=== PATIENT | female | born 1960 | race African-American/Black ===

== ENCOUNTER 2016-10-05 01:09 | Inpatient (IN) | payer OTHER ==
[~2016-10-05] VITALS: Ht 165.1 cm; Wt 108.4 kg
[~2016-10-05 01:09] MED LIST: ACTOS45 M1 PO; GABAPENTIN300 M2 PO; GLIPIZIDE10 M2 PO; LOSARTAN PO; TRADJENTA5 M1 PO
[2016-10-05] MEDS ORDERED: PRILOSEC OTC20 M1 PO (13:59)
[2016-10-05] MEDS ORDERED: COLACE100 M1 PO (13:59)
[2016-10-05] MEDS ORDERED: MIRALAX17 G1 PO (13:59)
--- NOTE | 2016-10-05 14:04 | Patient Discharge Instructions ---
Discharge Instructions General Discharge Information You were seen/treated for: RIGHT KNEE PAIN You had these procedures: RIGHT TOTAL KNEE REPLACEMENT Watch for these problems: INCREASING PAIN, REDNESS, WARMTH, SWELLING. DRAINAGE OF ANY TYPE FROM INCISION. INABILITY TO BEAR WEIGHT ON RIGHT LEG. FEVER >101.5 DEGREES. Do not soak the wound: Yes No bath, but you may shower: Yes Other wound care: KEEP WOUND CLEAN AND DRY Special Instructions: BOWEL REGIMEN: PLEASE TAKE COLACE AND MIRALAX ORDERD, IT IS IMPORTANT TO PREVENT CONSTIPATION ESPECIALLY WHEN TAKING PAIN MEDICATION PLEASE TAKE YOUR ASPIRIN TWICE DAILY FOR 3 WEEKS. THIS IS IMPORTANT BECAUSE IT PROTECTS YOU FROM A BLOOD CLOT. NO OITNMENTS OF ANY TYPE ARE TO BE PLACED ON INCSION. NO EXCEPTIONS. Stay in knee immobilizer at all times, do not bend the knee Diet Continue normal diet: Yes Recommended Diet: Diabetic Activity Full Activity/No Limits: No Activity Self Limited: Yes Activity Limited to: Weight bear as tolerated Additional ACTIVITY Info: Knee immobilizer at all times, no bending of the knee Acute Coronary Syndrome Inclusion Criteria At DC or during hospital stay patient has or had the following: ACS DIAGNOSIS No Discharge Core Measures Meds if any: Prescribed or Continued at Discharge Meds if any: NOT Prescribed or Continued at Discharge Congestive Heart Failure Inclusion Criteria At DC or during hospital stay patient has or had the following: CHF DIAGNOSIS No Discharge Core Measures Meds if any: Prescribed or Continued at Discharge Meds if any: NOT Prescribed or Continued at Discharge Cerebrovascular accident Inclusion Criteria At DC or during hospital stay patient has or had the following: CVA/TIA Diagnosis No Discharge Core Measures Meds if any: Prescribed or Continued at Discharge Meds if any: NOT Prescribed or Continued at Discharge Venous thromboembolism Inclusion Criteria VTE Diagnosis No VTE Type NONE VTE Confirmed by (Test) NONE Discharge Core Measures - Per Current guidelines, there needs to be overlap - treatment for the first 5 days of Warfarin therapy. - If discharged on Warfarin prior to 5 days of - overlap therapy, the patient will need to be - assessed for post discharge needs including - *Post discharge parental anticoagulation - *Warfarin and/or parental anticoagulation education - *Follow up date to check INR post discharge At least 5 days overlap therapy as Inpatient No Meds if any: Prescribed or Continued at Discharge Note: Overlap Therapy is Warfarin and Anticoagulant Meds if any: NOT Prescribed or Continued at Discharge
--- NOTE | 2016-10-05 14:06 | Admission Core Measures ---
Admission Meds I reviewed the following Meds: Current Medications Sig/Robert Start time Last Medication Dose Stop Time Status Admin Acetaminophen 975 MG ONCE 10/05 0000 NR (Tylenol) 10/05 2358 Gabapentin 300 MG TID 10/05 1600 UNVr (Neurontin) Glipizide 10 MG DAILY AC 10/06 0700 UNVr (Glucotrol 10 MG Tab) Losartan Potassium 50 MG DAILY 10/06 1000 AC (Cozaar) Oxycodone HCl 10 MG ONCE 10/05 0000 NR (Roxicodone) 10/05 2358 Pioglitazone HCl 45 MG DAILY 10/06 1000 AC (Actos) Ropivacaine 500 ML ONCE ONE 10/05 1145 AC (NAROPIN) 10/07 0524 ON-Q Ball 1 BAG Acute Coronary Syndrome Inclusion Criteria ACS Diagnosis No Inpatient Core Measures LDL Reminder: If No, please order W/I first 24hr of stay Congestive Heart Failure Inclusion Criteria CHF Diagnosis No Cerebrovascular accident Inclusion Criteria CVA/TIA Diagnosis No Inpatient Core Measures Bedside Swallow Eval Reminder: If BSE failed, place ST order Antithrombotic Reminder: Order Antithrombotic Medication by end of day 2 Antithrombotic Reminder: Document Reason Antithrombotic Not ordered by end of day 2 AFIB/Flutter Reminder: If Present, add to problem list AFIB/Flutter Reminder: Order Anticoag Medication for pts with AFIB/Flutter Atherosclerosis Reminder: If Present, add to problem list LDL Reminder: If No, please order W/I first 24hr of stay PT Order Reminder: If No, please order Venous thromboembolism Inpatient Core Measures VTE Risk Factors: Age > 40, Surgery No [facility] VTE prophylaxis d/t No contraindications No VTE Pharm Prophylaxis d/t No contraindications Inclusion Criteria - Per Current guidelines, there needs to be overlap - treatment for the first 5 days of Warfarin therapy. - Parenteral Anticoagulation (IV or SC) needs to be - given along with Warfarin therapy. VTE Diagnosis No VTE Type NONE VTE Confirmed by (Test) NONE Problem List As ranked by this Provider includes Assessment & Plan 1. Unilateral primary osteoarthritis, right knee HOME MEDS Home Med List Gabapentin 300 MG CAPSULE 1 CAP PO TID NEUROPATHY (Reported) Glipizide 10 MG TABLET 1 TAB PO DAILY DM II (Reported) Linagliptin (Tradjenta) 5 MG TABLET 1 TAB PO DAILY DM II (Reported) [LOSARTAN] 50 MG 1 TAB PO DAILY HTN (Reported) Pioglitazone HCl (Actos) 45 MG TABLET 1 TAB PO DAILY DM II (Reported)
--- NOTE | 2016-10-05 14:09 | Surgical Discharge Summary ---
Visit Information Visit Dates Admission Date: 10/05/16 Discharge Date: 10/09/16 History of Present Illness Chief Complaint: RIGHT KNEE PAIN Medical History Neurological: neuropathy Cardiovascular: hypertension Musculoskeletal: degen joint disease, osteoarthritis Endocrine: diabetes Surgical History Pertinent Surgical History: non-contributory Review of Systems: SEE H&P Hospital Course Course Attending Physician: MARCY SALINAS MD Primary Care Physician: JF AGARWAL,[facility] Course: RON WAS ADMITTED TO THE HOSPITAL ON 10/05/2016 FOR AN ELECTIVE RIGHT TOTAL KNEE REPLACEMENT. SHE TOLERATED THE PROCEDURE WELL. SHE WAS TRANSFERRED TO A GENERAL SURGICAL FLOOR. HER DIET WAS ADVANCED AND TOLERATD. HER PAIN WAS CONTROLLED WELL WITH ORAL PAIN MEDICATIONS WELL as On-Q nerve block Patient had elevated blood sugar over 400 and medicine consult was called followed by a endocrine consult with Dr. forrest. Recommendations were made and blood sugars have improved. On postop day 1, 10/06/2016, unfortunately patient had a fall while attempting to wash herself at the bedside. She suffered a anterior and lateral right knee dislocation and complete wound dehiscence and tearing of the skin and additional wound which was a continuation of the surgical incision distally and medially into the medial calf region. She did not suffer any fracture or other traumatic injury. The leg was stabilized in immobilizer and Betadine and saline dressing was placed into the wound and compression wrap was placed on the leg to control the bleeding. She was later taken back to the operating room by Dr. Salinas and underwent a polyethylene exchange, extensive irrigation, medial collateral ligament repair as it was extensively torn, hardware removal of ozzy of the proximal tibia and then re-implantation of ozzy and the proximal tibia tightening down her medial compartment for additional valgus support as her knee was grossly unstable. She also underwent a repair of the distal wound that was torn open after her fall. She remained neurovascularly intact postoperatively and there was no evidence of popliteal artery or nerve damage. She tolerated the procedure well without complications, Hemovac drain was placed and she was continued on antibiotics until her discharge. Knee immobilizer was placed in the operating room and she will continue this knee immobilizer until 6 weeks postoperatively for her first follow-up appointment. She will continue on eliquis for DVT prophylaxis. She is weightbearing as tolerated on the right lower leg and has been working with physical therapy, knee immobilizer on at all times. Complications: See above Allergies: Coded Allergies: Penicillins (CHILDHOOD 10/01/16) Disposition Summary Disposition Principal Diagnosis: RIGHT KNEE UNILATERAL PRIMARY OSTEOARTHRITIS Additional Diagnosis: Mechanical fall with traumatic injury to the right lower extremity, right knee causing wound dehiscence anterior and lateral dislocation of the knee joint and open wound of the distal incision extending into the proximal medial lower leg requiring surgical washout and polyethylene liner exchange and wound repair and reconstruction of medial collateral ligament on 10/06/2016 Discharge Disposition: SNF Discharge Instructions General Discharge Information Code Status: Full Code Patient's Diet: ADA, ADVANCE TOLERATED Patient's Activity: WBAT Knee immobilizer on at all times No range of motion until seen by orthopedist postop Aspirin for DVT prophylaxis for 3 weeks Watch for signs of infection Follow-Up Instructions/Appts: 6 WEEKS FROM DATE OF SURGERY WITH DR. SALINAS Medications at Discharge Discharge Medications: Continue taking these medications: Glipizide (Glipizide) 10 MG TABLET 1 Tablet ORAL DAILY Comments: NOT GIVEN Gabapentin (Gabapentin) 300 MG CAPSULE 1 Capsule ORAL THREE TIMES DAILY Comments: NOT GIVEN Pioglitazone HCl (Actos) 45 MG TABLET 1 Tablet ORAL DAILY Comments: NOT GIVEN Linagliptin (Tradjenta) 5 MG TABLET 1 Tablet ORAL DAILY Comments: NOT GIVEN Losartan Potassium (Cozaar) 50 MG TABLET 1 Tablet ORAL DAILY Start taking the following new medications: Acetaminophen (Tylenol) 325 MG TABLET 650 Milligram ORAL EVERY 4 HOURS NEEDED as needed for PAIN 1-3 &/OR FEVER >101.5 Days = 10 No Refills Comments: Last Taken:10/08/16 Time:7AM Apixaban (Eliquis) 2.5 MG TABLET 2.5 Milligram ORAL TWICE DAILY Days = 28 No Refills Comments: Last Taken:10/09/16 Time:11AM Calcium Carbonate (Calcium Carbonate) 200 MG CALCIUM (500 MG) TAB.CHEW 1,000 Milligram ORAL EVERY 8 HOURS NEEDED as needed for HEARTBURN Days = 14 No Refills Comments: NOT GIVEN Gabapentin (Gabapentin) 300 MG CAPSULE 600 Milligram ORAL THREE TIMES DAILY Days = 28 No Refills Comments: Last Taken:10/09/16 Time:9AM Guaifenesin (Guaifenesin) 100 MG/5 ML LIQUID 10 Milliliters ORAL EVERY 4 HOURS NEEDED as needed for COUGH Days = 14 No Refills Comments: Last Taken:10/08/16 Time:10PM Insulin Detemir (Levemir) 100 UNIT/ML VIAL 18 Units Inject into fatty tissue TWICE DAILY Days = 30 No Refills Comments: Last Taken:10/09/16 Time:10AM Methocarbamol (Robaxin) 500 MG TABLET 1,000 Milligram ORAL THREE TIMES DAILY as needed for SPASMS Days = 14 No Refills Comments: Last Taken:10/08/16 Time:10PM Morphine Sulfate (Morphine Sulfate ER) 30 MG TABLET.ER 30 Milligram ORAL TWICE DAILY as needed for long acting pain control Days = 7 No Refills Comments: Last Taken:10/09/16 Time:10AM Nicotine (Nicotine Patch) 21 MG/24 HOUR PATCH.TD24 21 Milligram On the skin 2000 as needed for smoking cessation Days = 10 No Refills Comments: Last Taken:10/08/16 Time:10PM Oxycodone HCl (Oxycodone HCl) 10 MG TABLET 10 Milligram ORAL EVERY 4 HOURS NEEDED as needed for PAIN SCALE 4-6 ( MODERATE) Days = 14 No Refills Comments: NOT GIVEN Oxycodone HCl (Oxycodone HCl) 5 MG TABLET 15 Milligram ORAL EVERY 4 HOURS NEEDED as needed for PAIN SCALE 7-10 ( SEVERE) Days = 14 No Refills Comments: Last Taken:10/09/16 Time: 4:35 PM Zolpidem Tartrate (Zolpidem Tartrate) 5 MG TABLET 5 Milligram ORAL AT BEDTIME as needed for INSOMNIA Days = 10 No Refills Comments: Last Taken:10/09/16 Time:12AM Insulin Aspart (Novolog) 100 UNIT/ML VIAL 0 Inject into fatty tissue 4 TIMES A DAY Days = 30 No Refills Instructions: BEFORE MEALS X 3TIMES BEDTIME FSG < 200 NO COVERAGE NO COVERAGE 200-250 4 UNITS 2 UNITS 251-300 6 UNITS 3 UNITS 301-350 8 UNITS 4 UNITS 351-400 10 UNITS 5 UNITS >400 12 UNITS 6 UNITS Comments: Last Taken:10/09/16 Time: 12 NOON Docusate Sodium (Colace) 100 MG CAPSULE 1 Capsule ORAL TWICE DAILY Qty = 14 No Refills Instructions: DISCONTINUE USE IF YOU DEVELOP LOOSE STOOL OR DIARRHEA Polyethylene Glycol 3350 (Miralax) 17 GRAM POWD.PACK 1 Packet ORAL DAILY Qty = 7 No Refills Instructions: dissolve in water, DISCONTINUE USE IF YOU DEVELOP LOOSE STOOL OR DIARRHEA Omeprazole Magnesium (Prilosec Otc) 20 MG TABLET. 1 Tablet ORAL DAILY Qty = 30 No Refills Copies To: JF AGARWAL,DIONICIO
--- NOTE | 2016-10-05 16:09 | Operative Report ---
Operative/Inv Procedure Report Surgery Date: 10/05/16 Name of Procedure: 1. Right total knee replacement 2. Left knee cortisone injection Pre-Operative Diagnosis: Bilateral knee DJD Post-Operative Diagnosis: Same Estimated Blood Loss: 50ml to 100ml Surgeon/Travel Registered Nurse Icu: RITA AGARWAL,MARCY Bhakta Anesthesia: block Operative/Procedure Note Note: Description of Procedure: The patient was taken to the operating room and positively identified. After induction of spinal anesthesia and administration of appropriate pre-operative antibiotics, the patient was positioned supine on the operating room table and all bony prominences were well padded. The left knee was prepped steriley and injected with a mixture of 2cc of Depo- Medrol and 8cc of 0.5% Marcaine. A bandaid was placed on the injection site. A well-padded pneumatic tourniquet was placed on the right upper thigh. After performing a surgical timeout, the right lower extremity was prepped and draped in the usual sterile fashion. After exsanguination with Esmarch the tourniquet was inflated to 250mm of mercury. A standard medial parapatellar approach was made to the knee. This was carried down through skin and subcutaneous tissue to the level of the fascia. Meticulous hemostasis was maintained with Bovie electrocautery. The extensor mechanism and patellar retinaculum were opened sharply and the patella was everted. The infrapatellar fat was resected in order to improve exposure. Osteophytes were trimmed from the patella and femoral condyles and the patella was re-everted and tucked laterally. A medial release was performed and the cruciate ligaments were resected. The tibia was then subluxed anteriorly. Utilizing the appropriate extra-medullary guide, the proximal tibia was trimmed perpendicular to the long axis of the tibial shaft. Attention was then turned to the femur. After opening the medullary canal, the distal femoral cut was made in 6 degrees of valgus utilizing the appropriate intra-medullary guide. The extension gap was checked and found to be appropriate. The femur was then sized and the remainder of the femoral cuts were made with a size 3 4-in-1 femoral cutting guide. The flexion gap was checked and found to be symmetric and appropriate. The knee was then trialed with a size 3 femoral component, a size 3 tibial component and a size 11 mm polyethylene insert. The patella was not resurfaced due to its excellent preop condition. This yielded excellent range of motion, stability and patellar tracking. All trial components were removed and the knee was copiously irrigated with sterile saline. All components were cemented into place with Miri Simplex cement. All the components were of the [place] Triathlon knee system of the above stated sizes. After cementation, it was noted that the MCL was quite a bit more lax than it was during trialling. The MCL was then tensioned with the knee is 20 degrees of flexion and some varus and secured with a pair of Sanchez ozzy. It was noted to be stable after this. The knee was again irrigated after cementation. The extensor mechanism and patellar retinaculum were repaired using interrupted #1 vicryl suture. The skin was re-approximated with 2-0 vicryl and closed with ozzy. A sterile dressing was applied, the tourniquet was deflated, the patient was awakened and taken to the recovery room in satisfactory condition.
--- NOTE | 2016-10-05 17:02 | PN- Orthopedic ---
Subjective Subjective: Postop check: Postoperatively patient is doing well, she just received a nerve block to the right lower extremity in the recovery room and her pain has resolved. She has no other complaints. Objective Vital Signs and I&Os Vital signs stable Physical Exam: Well-developed well-nourished no apparent distress. HEENT: Atraumatic, extraocular motion intact Neck: Supple, no lymphadenopathy Respiratory: No respiratory distress Extremities: No edema RIGHT lower extremity dressing in place, on-Q in place Compression wrap in place. Neurovascularly intact distally Bilateral calves are supple, nontender. Neuro: Alert and oriented x3 Psych: Mood affect normal, normal memory normal judgment. Skin: Warm and dry, no rash on exposed skin Assessment/Plan Assessment/Plan Postop day 0 status post right total knee arthroplasty. -Orthopedically stable -Pain medication as needed -Continue on-Q -Dressing change in 2 days -Prilosec for GI prophylaxis and stool softeners -Aspirin for DVT prophylaxis -Follow labs tomorrow -Alps, compression wrap RLE -Ancef for infectious prophylaxis 2 more doses -Out of bed with physical therapy weightbearing as tolerated -Plan for prison facility in 2-3 days -Monitor blood sugar, tight glycemic control required postoperatively, insulin sliding scale ordered -Nicotine patch, patient act per day smoker Core Measures/Miscellaneous Venous Thromboembolism VTE Risk Factors: Age > 40, Smoking, Surgery VTE Contraindications: No Contraindications VTE Diagnosis: No VTE Type: NONE VTE Confirmed by (Test): NONE Beta Cody Is Beta Cody a Home Med? No Antibiotics Is Patient on Antibiotics? Yes If Yes: prophylaxis
[2016-10-05 18:50] VITALS: BP 144/60
--- NOTE | 2016-10-05 19:56 | Cons- Medical ---
CARMEN WIGGINS 10/05/161954: General Information and HPI Consulting Request Date of Consult: 10/05/16 Requested By: MARCY SALINAS MD Reason for Consult: Hyperglycemia Source of Information: patient, EMS Exam Limitations: no limitations History of Present Illness: Reason for consult: Management of hyperglycemia Past medical history: Hypertension, diastolic CHF, NIDDM, osteoarthritis, DJD The patient is status post right total knee arthroplasty this morning. She was reported to have blood glucose level elevated to 482 around 6 PM. She was given 12 units of regular insulin, blood glucose level was checked after dinner around 7 PM which was 499. Medical team was consulted for management of blood glucose levels. Per patient, she was diagnosed with diabetes 8 years ago. She usually checks her blood glucose levels once a day(120s). Hemoglobin A1c 7 in August 2016. No history of DKA or hyperosmolar coma in past, no admission for hyperglycemia. 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 She was maintained on glipizide 10 mg daily , and Pioglitazone 45 mg daily during her hospital stay. Of note she also received dextrose-containing fluids today. The patient denies any headache, nausea, vomiting, dizziness, lightheadedness, abdominal pain, urinary symptoms. Allergies/Medications Allergies: Coded Allergies: Penicillins (CHILDHOOD 10/01/16) Home Med List: Gabapentin 300 MG CAPSULE 1 CAP PO TID NEUROPATHY (Reported) Glipizide 10 MG TABLET 1 TAB PO DAILY DM II (Reported) Linagliptin (Tradjenta) 5 MG TABLET 1 TAB PO DAILY DM II (Reported) [LOSARTAN] 50 MG 1 TAB PO DAILY HTN (Reported) Pioglitazone HCl (Actos) 45 MG TABLET 1 TAB PO DAILY DM II (Reported) Review of Systems Review of Systems Constitutional: Denies: chills, diaphoresis, fever, malaise, weakness, unexplained weight loss. EENTM: Reports: no symptoms. Cardiovascular: Reports: no symptoms. Respiratory: Reports: no symptoms. GI: Reports: no symptoms. Genitourinary: Reports: no symptoms. Musculoskeletal: Reports: no symptoms. Skin: Reports: no symptoms. Neurological/Psychological: Reports: no symptoms. Hematologic/Endocrine: Reports: no symptoms. Immunologic/Allergic: Reports: no symptoms. All Other Systems: Reviewed and Negative Past History Medical History Blood Transfusion Hx: No Neurological: NONE EENT: NONE Cardiovascular: diastolic CHF, hypertension Respiratory: NONE Gastrointestinal: NONE Hepatic: NONE Renal: NONE Musculoskeletal: degen joint disease, osteoarthritis Psychiatric: NONE Endocrine: diabetes Blood Disorders: NONE Cancer(s): NONE MARKETING DIRECTOR ASSISTED LIVING/Reproductive: NONE Surgical History Surgical History: non-contributory Psychosocial History Where Do You Live? Home Smoking Status: Current Everyday Smoker Exam & Diagnostic Data Last 24 Hrs of Vital Signs/I&O Vital Signs Date Time Temp Pulse Resp B/P Pulse O2 O2 Flow FiO2 Ox Delivery Rate 10/05 2311 150/80 10/05 2250 98.1 99 20 96 Room Air 10/05 2002 97.9 88 20 130/64 94 Room Air 10/05 1850 98.2 92 14 144/60 95 Room Air Intake & Output 10/06 0800 10/06 0000 10/05 1600 Intake Total 2400 Output Total 601 Balance 1799 Intake, IV 400 Intake, Oral 2000 Number 3 Bowel Movements Output, Stool 1 Output, Urine 600 Patient 240 lb Weight Physical Exam General Appearance: well developed/nourished, no apparent distress, alert, awake , comfortable Head: atraumatic, normal appearance Eyes: Bilateral: PERRL, EOMI. Ears, Nose, Throat: normal pharynx, normal ENT inspection Neck: normal inspection, supple, full range of motion, JVD Respiratory: normal breath sounds, chest non-tender, no respiratory distress Cardiovascular: regular rate/rhythm, No murmur Back: normal inspection Extremities: normal inspection, no edema Neurologic/Psych: no motor/sensory deficits, awake, alert, oriented x 3 Cranial Nerves: normal hearing, normal speech, PERRL, CN 3-12 intact, NL Reflexes Skin: intact, normal color Last 24 Hrs of Labs/Rich: Laboratory Tests 10/05/16 2000: Anion Gap 17 H, Estimated GFR 52 L, BUN/Creatinine Ratio 20.9 Assessment/Plan Assessment/Plan 56-year-old lady with NIDDM status post right total knee arthroplasty this morning, now hyperglycemic to 400s. * The patient has received 12 units of regular insulin. * BEP pending * 6 Unit aspart insulin stat * Accuchecks q2 * Endo consult tomorrow morning Update 1 AM, 10/06/2016: Blood glucose level 452, will give another 6 units of aspart insulin. Will monitor closely. Problem List: 1. Hyperglycemia Copies To: RITA AGARWAL,MARCY Consult Acknowledgment - Thank you for your consult request. ANNETTE RODRIGUEZ 10/06/16 0652: Assessment/Plan Consult Acknowledgment - Thank you for your consult request. Attending MD Review Statement Attending Statement Attending MD Statement: examined this patient, discuss w/resident/PA/DIGITAL MARKETER, agreed w/resident/PA/DIGITAL MARKETER, reviewed EMR data (avail), reviewed images, amended to note Attending Assessment/Plan: Patient was admitted for elective right knee replacement surgery. Medical consult was called for persistent hyperglycemia. Patient is symptomatic. She takes 3 different oral hypoglycemics at home, and was not receiving any insulin prior to surgery. Examination unremarkable, labs unremarkable. -Patient received 12 units of regular insulin in the evening, still persistently hyperglycemic. -6 more units of aspart insulin was given, Accu-Cheks every 2 hours -Patient is insulin gopi, have to be cautious with insulin use -Continue sliding scale according to next Accu-Cheks -Endocrine consult in a.m. - Patient's hemoglobin A1c was 7, doesn't recently outpatient. Postoperative stress might be adding up to hyperglycemia.
[2016-10-05 20:03] VITALS: BP 130/64
[2016-10-05 23:11] VITALS: BP 150/80
[2016-10-06 00:58] VITALS: BP 162/82
[2016-10-06 05:00] VITALS: BP 170/80
--- NOTE | 2016-10-06 07:16 | PN- Medicine Consult ---
See Addendum SANA POLLARD 10/06/16 0716: Assessment/Plan Assessment/Plan Assessment: 56-year-old lady with a PMH of HTN, DJD, OA, diabetes on triple therapy ( glipizide jrajenta, pioglitazone), gated with diabetic neuropathy which is managed with gabapentin was admitted and is now status post right total knee replacement. Currently being consulted for assistance with management of diabetes. VS on admission: BP 144/60, HR 92, RR 14, SPO2 95% on RA, T 98.2 Pertinent labs: CBC: Pending. Sodium 136, potassium 4.1, chloride 96, bicarbonate 28, BUN/CR 26/0.6 Problem list: 1. Right total knee replacement (10/05/2016) 2. Left knee cortisone injection 3. Diabetes with hyperglycemia 4. Hypertension Plan: Recommendations: 1. Right total knee replacement (10/05/2016) * Pain management and recommendations per surgery 2. Left knee cortisone injection * Pain management and recommendations per surgery 3. Diabetes with hyperglycemia * Patient is on triple oral anti-hyperglycemics at home * Linagliptin 5 mg, pioglitazone 45 mg, glipizide 10 mg * Accu-Cheks between 327 and 499 * She received her morning dose of pioglitazone 45 mg, glipizide 10 mg. In addition, 10 units of NovoLog administered at 8 AM * Recommendations provided by icing and glaze maker Dr. Jones * Discontinue pioglitazone and glipizide. Continue with Trajenta (linagliptin) 5mg daily * Based on pts average weight 100 kg, total insulin requirements per 24 hours will be average 50 units, half of which would be basal the rest per SS. In patient insulin naive, slightly lower insulin dosage can be applied. * SS per Dr Jones * Levemir 12 units BID 4. Hypertension * SBP range 130 to 170 * Elevation likely secondary to pain * Continue losartan 50 mg daily and pain management 5. Diarrhea * Less likely to be infectious at this point * If persistent send stool C. difficile Problem List: 1. Total knee replacement status 2. Diabetes 3. Hyperglycemia 4. HTN (hypertension) 5. Diarrhea Subjective Subjective: Interval history: This morning the patient complains of pain in her right knee and some abdominal discomfort. She reports that she has been diagnosed with diabetes approximately 10 years ago , prior HgA1c around 12, metformin discontinued in the setting of diarrhea. She has been on triple oral antihyperglycemic agents for a few months and states that her latest HgA1c is around 7. She is followed up by an icing and glaze maker at [facility]. She denies any fevers or chills at this time Review of Systems Constitutional: Reports: see HPI. EENTM: Reports: no symptoms. Cardiovascular: Reports: see HPI. Respiratory: Reports: no symptoms. Gastrointestinal: Reports: see HPI. Genitourinary: Reports: see HPI. Musculoskeletal: Reports: see HPI. Objective Last 24 Hrs of Vital Signs/I&O Vital Signs Date Time Temp Pulse Resp B/P Pulse O2 O2 Flow FiO2 Ox Delivery Rate 10/06 0812 85 164/80 10/06 0500 98.1 88 18 170/80 93 Room Air 10/06 0058 98.0 88 18 162/82 93 Room Air 10/05 2311 150/80 10/05 2250 98.1 99 20 96 Room Air 10/05 2003 97.9 88 20 130/64 94 Room Air 10/05 1850 98.2 92 14 144/60 95 Room Air Intake & Output 10/06 1600 10/06 0800 10/06 0000 Intake Total 1280 2400 Output Total 1250 601 Balance 30 1799 Intake, IV 800 400 Intake, Oral 480 2000 Number 3 Bowel Movements Output, Stool 1 Output, Urine 1250 600 Patient 240 lb Weight Physical Exam General Appearance: alert, comfortable Head: normal appearance Ears, Nose, Throat: hearing grossly normal Cardiovascular: regular rate/rhythm, distant heart sounds Respiratory: normal breath sounds, decreased breath sounds in the basilar region Abdomen: normal bowel sounds, soft, non-tender, Hyperactive bowel sounds Extremities: plus pitting edema. Right knee is covered in an Emery bandage at this time Current Medications: Current Medications Sig/Robert Start time Last Medication Dose Route Stop Time Status Admin Acetaminophen 650 MG Q4P PRN 10/05 1745 AC PO Acetaminophen 0 .STK-MED ONE 10/05 1057 DC PO Acetaminophen 975 MG ONCE 10/05 0000 DC PO 10/05 2359 Aspirin 325 MG BID 10/05 2200 AC 10/06 PO 0811 Cefazolin Sodium 2 GM Q8H 10/05 1700 DC 10/06 N/A 1 UNIT IV 10/06 0129 0000 Dextrose/Sodium 1,000 ML .[id number] 10/05 1745 DC 10/05 Chloride IV 1755 Docusate Sodium 100 MG BID 10/05 2200 DC 10/05 PO 2047 Fentanyl Citrate 100 MCG .STK-MED ONE 10/05 0920 DC IM 10/05 0921 Gabapentin 600 MG TID 10/06 1000 AC 10/06 PO 0610 Gabapentin 300 MG TID 10/05 2200 DC 10/05 PO 2047 Gabapentin 300 MG TID 10/05 1600 DC PO Glipizide 10 MG 0800,1700 10/06 0800 DC PO Glipizide 10 MG 0800,1700 10/06 0800 DC 10/06 PO 0811 Hydromorphone HCl 2 MG Q4P PRN 10/05 1745 AC PO Hydromorphone HCl 4 MG Q4P PRN 10/05 1745 AC 10/06 PO 0608 Hydromorphone HCl 2 MG .STK-MED ONE 10/05 1538 DC IM 10/05 1539 Insulin Aspart 0 TIDAC/HS 10/06 1200 AC SC Insulin Aspart 6 UNITS ONCE ONE 10/06 0845 DC 10/06 SC 10/06 0846 0853 Insulin Aspart 6 UNITS ONCE ONE 10/06 0100 DC 10/06 SC 10/06 0101 0109 Insulin Aspart 6 UNITS ONCE ONE 10/05 2100 DC 10/05 MA 10/05 2101 2125 Insulin Detemir 12 UNITS BID 10/06 1000 AC 10/06 SC 0852 Insulin Human Regular 0 TIDAC/HS 10/05 1700 DC 10/06 SC 0812 Ketorolac 15 MG Q8P PRN 10/05 1745 AC Tromethamine IV 10/08 1742 Losartan Potassium 50 MG DAILY 10/06 1000 DC PO Losartan Potassium 50 MG DAILY 10/06 1000 AC 10/06 PO 0812 Midazolam HCl 4 MG .STK-MED ONE 10/05 0920 DC IM 10/05 0921 Morphine Sulfate 2 MG Q2P PRN 10/05 1745 AC 10/06 IV 0859 Nicotine 21 MG 2000 10/06 2000 AC TOP Nicotine 21 MG DAILY 10/05 1700 DC 10/05 TOP 2048 Omeprazole 40 MG DAILY AC 10/06 0700 AC 10/06 PO 0607 Ondansetron HCl 4 MG Q6P PRN 10/05 1745 AC IV Oxycodone HCl 0 .STK-MED ONE 10/05 1057 DC PO Oxycodone HCl 10 MG ONCE 10/05 0000 DC PO 10/05 2359 Pioglitazone HCl 45 MG DAILY 10/06 1000 DC PO Pioglitazone HCl 45 MG DAILY 10/06 1000 DC 10/06 PO 0811 Polyethylene Glycol 17 GM DAILY 10/06 1000 DC PO Promethazine HCl 12.5 MG Q6P PRN 10/05 1745 AC IV 10/12 1359 Ropivacaine 500 ML ONCE ONE 10/05 1145 AC 10/05 ON-Q Ball 1 BAG INJ 10/07 0524 1756 Sodium Chloride 1,000 ML Q10H 10/05 2045 AC 10/06 IV 0608 Tranexamic Acid 2,000 MG .STK-MED ONE 10/05 0920 DC IV 10/05 0921 Zolpidem Tartrate 5 MG AT BEDTIME 10/06 2200 DC PO Zolpidem Tartrate 5 MG AT BEDTIME PRN 10/05 2315 AC 10/05 PO 2306 Results Last 24 Hrs Lab/Rich Results: Laboratory Tests 10/06/16 0640: Anion Gap 12, Estimated GFR > 60, BUN/Creatinine Ratio 43.3 H, CBC w Diff NO MAN DIFF REQ, RBC 4.40, MCV 93.2, MCH 30.4, RDW 13.5, MPV 11.0 H, Gran % 87.7 H, Lymphocytes % 7.4 L, Monocytes % 4.9, Eosinophils % 0, Basophils % 0 L, Absolute Granulocytes 10.9 H, Absolute Lymphocytes 0.9 L, Absolute Monocytes 0.6, Absolute Eosinophils 0, Absolute Basophils 0, PUBS MCHC 32.6 L 10/05/16 2000: Anion Gap 17 H, Estimated GFR 52 L, BUN/Creatinine Ratio 20.9 Microbiology 10/05 2199 STOOL: Clostridium difficile Toxin A & B - COLB CISCO AGARWAL,STUART 10/06/16 1247: Attending MD Review Statement Attending Sign Off Attending Cosign Statement: I have: examined this patient, reviewed [facility] EMR data, personally reviewd images, discussd w/resident/PA/DATABASE OPERATOR, discussed mgmt plan w/sirisha, discussed mgmt plan w/pt, agreed w/resident/PA/DATABASE OPERATOR, amended to note. Other Findings: Patient seen and examined after the rapid response. Rapid Response was called because she fell. She was sitting in the chair, washing and then slipped and fell. Rapid response was called and patient was put on a bed through Mick lift. The right knee which is postop started to bleed. Blood pressure was checked and her systolic blood pressure was in 80s 2. Patient started to complain of pain in the knee as well as epigastric pain. Surgical PA 4 at the bedside they opened the dressing and the knee was completely open. Alicia came off and knee opened. Surgical PA opened the dressing, but in some Betadine sterile gauzes and the knee in rapid again. Patient started to complain of epigastric pain as well as feeling nauseous. We obtained EKG which does not show any acute changes but she had no previous EKGs to compare. We have ordered a fluid bolus, basic blood work as well as troponins to check. She was getting anxious and nervous. At this point we are moving her to ICU. Surgical PAs I'm going to contact Dr. Mackenzie as she will likely be taken back to OR again as right knee which is postop was completely opened after the fall. She had received her Levemir insulin this morning she also received was are pending this morning. She ate breakfast and then nicole crackers afterwards. Her blood pressure should be checked frequently. should be notified as she might make some changes in her insulin regimen. Cefazolin has been ordered per surgical PAs. DVT prophylaxis. Will refer to orthopedic.
--- NOTE | 2016-10-06 07:45 | PN- Orthopedic ---
Subjective Subjective: 56-year-old female postop day 1 status post right total knee arthroplasty. Her pain is controlled, she denies any nausea or vomiting. Her blood sugar was significantly elevated throughout the night and medicine has been consulted and following, making recommendations. She denies any increased urination or increased thirst. She is voiding normally. She has had loose bowel movements which she states can be normal for her, especially in the morning. She has yet to get out of bed with physical therapy. She denies any pain in the right knee. Objective Vital Signs and I&Os Vital Signs Date Time Temp Pulse Resp B/P Pulse O2 O2 Flow FiO2 Ox Delivery Rate 10/06 0500 98.1 88 18 170/80 93 Room Air 10/06 0058 98.0 88 18 162/82 93 Room Air 10/05 2311 150/80 10/05 2250 98.1 99 20 96 Room Air 10/05 2002 97.9 88 20 130/64 94 Room Air 10/05 1850 98.2 92 14 144/60 95 Room Air Intake & Output 10/06 0810/06 0000 10/05 1600 10/05 0810/05 0000 10/04 1600 Intake Total 1280 2400 Output Total 1250 601 Balance 30 1799 Intake, IV 800 400 Intake, Oral 480 2000 Number 3 Bowel Movements Output, Stool 1 Output, Urine 1250 600 Patient 240 lb Weight Physical Exam: Well-developed well-nourished no apparent distress. HEENT: Atraumatic, extraocular motion intact Neck: Supple, no lymphadenopathy Respiratory: No respiratory distress Extremities: No edema RIGHT lower extremity dressing in place, Range of motion is 0-30 Dressing clean dry and intact Compression wrap in place. ALPS in place Neurovascularly intact distally Bilateral calves are supple, nontender. Neuro: Alert and oriented x3 Psych: Mood affect normal, normal memory normal judgment. Skin: Warm and dry, no rash on exposed skin Results Last 48 Hours of Labs: Laboratory Tests 10/06 10/05 0640 1999 Chemistry Sodium (137 - 145 mmol/L) Pending 133 L Potassium (3.5 - 5.1 mmol/L) Pending 4.6 Chloride (98 - 107 mmol/L) Pending 90 L Carbon Dioxide (22 - 30 mmol/L) Pending 26 Anion Gap (5 - 16) Pending 17 H BUN (7 - 17 mg/dL) Pending 23 H Creatinine (0.5 - 1.0 mg/dL) Pending 1.1 H Estimated GFR (>60 ml/min) 52 L BUN/Creatinine Ratio (7 - 25 %) Pending 20.9 Hematology CBC w Diff Pending WBC Pending RBC Pending Hgb Pending Hct Pending MCV Pending MCH Pending RDW Pending Plt Count Pending MPV Pending PUBS MCHC Pending Assessment/Plan Assessment/Plan Postop day 1 status post right total knee arthroplasty. -Orthopedically stable -Pain medication as needed -Continue on-Q -Dressing change tomorrow -Prilosec for GI prophylaxis , hold stool softeners due to diarrhea, C. difficile pending receipt -Aspirin for DVT prophylaxis -Follow labs this a.m. -Alps, compression wrap RLE -Ancef completed -Out of bed with physical therapy weightbearing as tolerated -Plan for residential facility in 1-2 days -Elevated blood sugar, medicine following, appreciated -Nicotine patch, patient 1 per day smoker Core Measures/Miscellaneous Venous Thromboembolism VTE Risk Factors: Age > 40, Smoking, Surgery VTE Contraindications: No Contraindications VTE Diagnosis: No VTE Type: NONE VTE Confirmed by (Test): NONE Beta Cody Is Beta Cody a Home Med? No Antibiotics Is Patient on Antibiotics? Yes If Yes: prophylaxis
[2016-10-06 08:00] LABS: ABSOLUTE BASOPHIL COUNT 0 /CUMM (0.0-0.2); ABSOLUTE EOSINOPHIL COUNT 0 /CUMM (0.0-0.7); ABSOLUTE GRANULOCYTE CT 10.9 /CUMM (1.4-6.5); ABSOLUTE LYMPH COUNT 0.9 /CUMM (1.2-3.4); ABSOLUTE MONOCYTE COUNT 0.6 /CUMM (0.10-0.60); BASOPHIL % 0 % (0.0-2.0); EOSINOPHIL % 0 % (0-5); MEAN CORPUSCULAR HGB 30.4 PG (27.0-31.0); MEAN CORPUSCULAR HGB CONC 32.6 G/DL (33.0-37.0); MEAN CORPUSCULAR VOLUME 93.2 FL (81.0-99.0); RBC DISTRIBUTION WIDTH 13.5 % (11.5-14.5); WHITE BLOOD CELL COUNT 12.4 /CUMM (4.8-10.8)
[2016-10-06 09:03] LABS: GRANULOCYTE % 87.7 % (42.2-75.2); PLATELET COUNT 112 /CUMM (130-400)
--- NOTE | 2016-10-06 10:30 | Cons- Endocrinology ---
General Information and HPI Consulting Request Date of Consult: 10/06/16 Requested By: medical team Reason for Consult: management of DM type 2 Source of Information: patient, old records Exam Limitations: no limitations History of Present Illness: 56-year-old lady with a PMH of HTN, OA, diabetes type 2 compliacted with diabetic neuropathy was admitted and is now status post right knee surgery. Her FSGs were in the 300s and 400s. I was asked to see her for management of DM. At home, she is on Tradjenta 5 mg daily, Actos 45 mg daily and Glipizide 10 mg twice a day. As per patient, she couldn't take metformin due to GI side effects. Her recent HbA1c was 7.0%. In hospital, she was put on her oral home antidiabetic medications and regular insulin coverage. Repeat FSG was 399 this morning. Allergies/Medications Allergies: Coded Allergies: Penicillins (CHILDHOOD 10/01/16) Home Med List: Gabapentin 300 MG CAPSULE 1 CAP PO TID NEUROPATHY (Reported) Glipizide 10 MG TABLET 1 TAB PO DAILY DM II (Reported) Linagliptin (Tradjenta) 5 MG TABLET 1 TAB PO DAILY DM II (Reported) [LOSARTAN] 50 MG 1 TAB PO DAILY HTN (Reported) Pioglitazone HCl (Actos) 45 MG TABLET 1 TAB PO DAILY DM II (Reported) Review of Systems Review of Systems Constitutional: Reports: see HPI (pain on her leg). Cardiovascular: Denies: chest pain. Respiratory: Denies: short of breath. GI: Reports: diarrhea. Hematologic/Endocrine: Reports: other (numbness on her feet). Past History Medical History Blood Transfusion Hx: No Neurological: NONE EENT: NONE Cardiovascular: diastolic CHF, hypertension Respiratory: NONE Gastrointestinal: NONE Hepatic: NONE Renal: NONE Musculoskeletal: degen joint disease, osteoarthritis Psychiatric: NONE Endocrine: diabetes Blood Disorders: NONE Cancer(s): NONE PHP LAMP DEVELOPER/Reproductive: NONE Surgical History Surgical History: non-contributory Psychosocial History Where Do You Live? Home Smoking Status: Current Everyday Smoker Exam & Diagnostic Data Last 24 Hrs of Vital Signs/I&O Vital Signs Date Time Temp Pulse Resp B/P Pulse O2 O2 Flow FiO2 Ox Delivery Rate 10/06 0812 85 164/80 10/06 0500 98.1 88 18 170/80 93 Room Air 10/06 0058 98.0 88 18 162/82 93 Room Air 10/05 2311 150/80 10/05 2250 98.1 99 20 96 Room Air 10/05 2002 97.9 88 20 130/64 94 Room Air 10/05 1850 98.2 92 14 144/60 95 Room Air Intake & Output 10/06 1600 10/06 0800 10/06 0000 Intake Total 1280 2400 Output Total 1250 601 Balance 30 1799 Intake, IV 800 400 Intake, Oral 480 2000 Number 3 Bowel Movements Output, Stool 1 Output, Urine 1250 600 Patient 240 lb Weight Physical Exam General Appearance: mild distress (due to pain) Neck: normal inspection Respiratory: lungs clear Cardiovascular: regular rate/rhythm Gastrointestinal: soft, non-tender Extremities: normal inspection (s/p surgery on her right knee) Labs/Rich Results: Laboratory Tests 10/06 10/05 0640 1999 Chemistry Sodium (137 - 145 mmol/L) 136 L 133 L Potassium (3.5 - 5.1 mmol/L) 4.1 4.6 Chloride (98 - 107 mmol/L) 96 L 90 L Carbon Dioxide (22 - 30 mmol/L) 28 26 Anion Gap (5 - 16) 12 17 H BUN (7 - 17 mg/dL) 26 H 23 H Creatinine (0.5 - 1.0 mg/dL) 0.6 1.1 H Estimated GFR (>60 ml/min) > 60 52 L BUN/Creatinine Ratio (7 - 25 %) 43.3 H 20.9 Hematology CBC w Diff NO MAN DIFF REQ WBC (4.8 - 10.8 /CUMM) 12.4 H RBC (4.20 - 5.40 /CUMM) 4.40 Hgb (12.0 - 16.0 G/DL) 13.4 Hct (37 - 47 %) 41.0 MCV (81.0 - 99.0 FL) 93.2 MCH (27.0 - 31.0 PG) 30.4 RDW (11.5 - 14.5 %) 13.5 Plt Count (130 - 400 /CUMM) 112 L MPV (7.4 - 10.4 FL) 11.0 H Gran % (42.2 - 75.2 %) 87.7 H Lymphocytes % (20.5 - 51.1 %) 7.4 L Monocytes % (1.7 - 9.3 %) 4.9 Eosinophils % (0 - 5 %) 0 Basophils % (0.0 - 2.0 %) 0 L Absolute Granulocytes (1.4 - 6.5 /CUMM) 10.9 H Absolute Lymphocytes (1.2 - 3.4 /CUMM) 0.9 L Absolute Monocytes (0.10 - 0.60 /CUMM) 0.6 Absolute Eosinophils (0.0 - 0.7 /CUMM) 0 Absolute Basophils (0.0 - 0.2 /CUMM) 0 PUBS MCHC (33.0 - 37.0 G/DL) 32.6 L Assessment/Plan Assessment/Plan 56-year-old lady with a PMH of HTN, OA, diabetes type 2 compliacted with diabetic neuropathy was admitted and is now status post right knee surgery. Her FSGs were in the 300s and 400s. I was asked to see her for management of DM. DM management: 1.hold off on Glipizide and actos while she is in hospital. she will be on Tradjenta 5 mg daily. 2. Novolog 6 units x1 as her FSG is still 399 after she finished breakfast and received regular insulin 10 units before dinner; 3. stop RISS; 4. start Levemir 12 units twice a day; 5. start Novolog coverage before meals and Novolog coverage at bedtime-- detail see the inpatient DM order. 6. monitor FSGs. will follow. Inpatient Diabetes Orders Before Each Meal: Bolus Insulin: Novolog < 80 mg/dl: no coverage 80-100 mg/dl: 6 units 101-120 mg/dl: 6 units 121-150 mg/dl: 6 units 151-200 mg/dl: 8 units 201-250 mg/dl: 10 units 251-300 mg/dl: 12 units 301-350 mg/dl: 14 units 351-400 mg/dl: 16 units > 400 mg/dl: 18 units Bedtime: Bolus Insulin: Novolog < 80 mg/dl: no coverage 80-100 mg/dl: no coverage 101-120 mg/dl: no coverage 121-150 mg/dl: no coverage 151-200 mg/dl: no coverage 201-250 mg/dl: no coverage 251-300 mg/dl: 2 units 301-350 mg/dl: 3 units 351-400 mg/dl: 4 units > 400 mg/dl: 5 units Consult Acknowledgment - Thank you for your consult request.
[2016-10-06 11:45] VITALS: BP 86/58
--- NOTE | 2016-10-06 12:49 | Event Note ---
Event Note Event Note: Rapid response called on patient at approximately 11:45 am. Patient was attempting to bathe herself while in a chair and stood up after refusing help from hospital staff. A patient optical coating technician was next to her, but patient refused her help while washing up. The patient leaned forward on her tray table and the tray table moved, spilling water and the patient slipped and fell. She did not hit her head or lose consciousness. She was transported carefully to bed using a Mick lift. Vitals as follows: P: 101 BP: 86/50s Received 500 ml bolus over 1 hour for hypotension. Patient denied dizziness or lightheadness. On exam, patient was noted to have a complete tear of her wound, with exposed hardware. External rotation noted of tibia suggestive of a dislocation. Palpable DP/PT pulse noted. Sensation grossly intact. Dressing placed to open wound using betadine/NS solution and area packed, wrapped with kerlex and eldon wrap and knee immobilizer applied. Transferred to ICU after xrays taken. Xrays confirmed the following: EXAM TYPE: RAD - XRY-HIP 2-3 VIEWS, RIGHT; XRY-KNEE, RIGHT EXAMINATION: XR HIP, RIGHT XR KNEE, RIGHT CLINICAL INFORMATION: Periprosthetic the fracture COMPARISON: None TECHNIQUE: 2 views of the right hip. 2 views of the right knee. FINDINGS: Right hip: Assessment is limited due to patient body habitus. Alignment on the frontal view appears preserved; the hip joint is not adequately visualized in the lateral projection. No gross evidence of fracture. Right knee: Patient is status post total knee arthroplasty. There is dislocation at the knee, with the tibia appearing rotated and dislocated anteriorly relative to the femur. Femoral and tibial hardware components individually appear well-seated. There is surrounding soft tissue gas and multiple ozzy. No acute appearing fracture is seen. IMPRESSION: 1. Right knee: Dislocation status post right total knee arthroplasty. No acute fracture identified. 2. Right hip: Suboptimally assessed due to patient body habitus; not adequately visualized in the lateral projection. Otherwise no acute findings identified. DICTATED BY: ROBERT TORRES MD DATE/TIME DICTATED:10/06/161319 SEO EXECUTIVE:JOSE DATE/TIME TRANSCRIBED:10/06/161319 CONFIDENTIAL, DO NOT COPY WITHOUT APPROPRIATE AUTHORIZATION. <Electronically signed in Other Vendor System> SIGNED BY: ROBERT TORRES MD 10/06/16 0743 A: acute knee dislocation s/p total knee arthroplasty; hypotension. Plan: transfer to ICU. Dr. Hay notified of xray findings/wound dihiscence. Patient to remain NPO. To OR tonight for revision.
--- NOTE | 2016-10-06 12:50 | Cons- CRCU ---
TADEOBrendanNAGABRIEL 10/06/16 1249: General Information and HPI Consulting Request Date of Consult: 10/06/16 Requested By: Dr cutler Reason for Consult: hypotension Source of Information: patient Exam Limitations: no limitations History of Present Illness: This is a 56 YO female with past medical history of hypertension, diastolic CHF, ues-sybtczj-cffotjrel diabetes mellitus, osteoarthritis, degenerative joint disease underwent an elective right total knee replacement on 10/05/[address] Cutler was seen by medical consult for reportedly having blood glucose level elevated to 482 on 10/05/2016. Her vitals on presentation were blood pressure of 144/60, heart rate 92, respiration of 14, SPO2 of 95% on room air, MAXIMUM TEMPERATURE of 98.2. Her E lites were mostly within normal limit, kidney functions were normal. Apparently a rapid response was called on 10/06/2016 at 11:44 AM, patient had a mechanical fall, right knee wound status post arthroplasty opened and she was complaining of excruciating pain 9 out of 10 in the right knee. The fall was unwitnessed and there was no head trauma. However she did complain of epigastric pain. Vitals after the fall were found to be blood pressure of 86/58, heart rate of 101, respiration of 18, she was 98% saturating on room air. Accu-Cheks were found to be 325. Subsequently due to low blood pressure patient was transferred to ICU. After receiving one liters of IV normal saline bolus in the ICU patient's blood pressure improved to 111/86. She complain of pain in the right knee however it was much better after receiving the IV 1 time Dilaudid before being transferred to ICU. She is somewhat and was stable currently nothing by mouth, will be going to the OR for management of the opened up the wound. Allergies/Medications Allergies: Coded Allergies: Penicillins (CHILDHOOD 10/01/16) Home Med List: Gabapentin 300 MG CAPSULE 1 CAP PO TID NEUROPATHY (Reported) Glipizide 10 MG TABLET 1 TAB PO DAILY DM II (Reported) Linagliptin (Tradjenta) 5 MG TABLET 1 TAB PO DAILY DM II (Reported) [LOSARTAN] 50 MG 1 TAB PO DAILY HTN (Reported) Pioglitazone HCl (Actos) 45 MG TABLET 1 TAB PO DAILY DM II (Reported) Current Medications: Current Medications Sig/Robert Start time Last Medication Dose Route Stop Time Status Admin Acetaminophen 650 MG Q4P PRN 10/05 1745 AC PO Acetaminophen 975 MG ONCE 10/05 0000 DC PO 10/05 2359 Aspirin 325 MG BID 10/05 2200 AC 10/06 PO 0811 Calcium Carbonate 1,000 MG Q8P PRN 10/06 1230 AC PO Cefazolin Sodium 2 GM Q8H 10/06 1230 UNVr N/A 1 UNIT IV Cefazolin Sodium 2 GM Q8H 10/05 1700 DC 10/06 N/A 1 UNIT IV 10/06 0129 0000 Dextrose/Sodium 1,000 ML .[id number] 10/05 1745 DC 10/05 Chloride IV 1755 Docusate Sodium 100 MG BID 10/05 2200 DC 10/05 PO 2047 Gabapentin 600 MG TID 10/06 1000 AC 10/06 PO 0610 Gabapentin 300 MG TID 10/05 2200 DC 10/05 PO 2047 Gabapentin 300 MG TID 10/05 1600 DC PO Glipizide 10 MG 0800,1700 10/06 0800 DC PO Glipizide 10 MG 0800,1700 10/06 0800 DC 10/06 PO 0811 Hydromorphone HCl 1 MG ONCE ONE 10/06 1245 DC 10/06 IV 10/06 1246 1245 Hydromorphone HCl 2 MG Q4P PRN 10/05 1745 DC PO Hydromorphone HCl 4 MG Q4P PRN 10/05 1745 DC 10/06 PO 0608 Hydromorphone HCl 2 MG .STK-MED ONE 10/05 1538 DC IM 10/05 1539 Insulin Aspart 0 TIDAC/HS 10/06 1200 AC SC Insulin Aspart 6 UNITS ONCE ONE 10/06 0845 DC 10/06 SC 10/06 0846 0853 Insulin Aspart 6 UNITS ONCE ONE 10/06 0100 DC 10/06 SC 10/06 0101 0109 Insulin Aspart 6 UNITS ONCE ONE 10/05 2100 DC 10/05 SC 10/05 2101 2125 Insulin Detemir 12 UNITS BID 10/06 1000 AC 10/06 SC 0852 Insulin Human Regular 0 TIDAC/HS 10/05 1700 DC 10/06 SC 0812 Ketorolac 15 MG Q8P PRN 10/05 1745 AC 10/06 Tromethamine IV 10/08 1742 1028 Losartan Potassium 50 MG DAILY 10/06 1000 DC PO Losartan Potassium 50 MG DAILY 10/06 1000 AC 10/06 PO 0812 Morphine Sulfate 2 MG Q2P PRN 10/05 1745 AC 10/06 IV 0859 Nicotine 21 MG 2000 10/06 2000 AC TOP Nicotine 21 MG DAILY 10/05 1700 DC 10/05 TOP 2048 Omeprazole 40 MG DAILY AC 10/06 0700 AC 10/06 PO 0607 Ondansetron HCl 4 MG Q6P PRN 10/05 1745 AC IV Oxycodone HCl 10 MG ONCE 10/05 0000 DC PO 10/05 2359 Oxycodone/ 1 TAB Q4P PRN 10/06 1045 AC Acetaminophen PO Oxycodone/ 2 TAB Q4P PRN 10/06 1045 AC 10/06 Acetaminophen PO 1054 Pantoprazole Sodium 40 MG DAILY 10/06 1222 UNVr IV Pioglitazone HCl 45 MG DAILY 10/06 1000 DC PO Pioglitazone HCl 45 MG DAILY 10/06 1000 DC 10/06 PO 0811 Polyethylene Glycol 17 GM DAILY 10/06 1000 DC PO Promethazine HCl 12.5 MG Q6P PRN 10/05 1745 AC IV 10/12 1359 Ropivacaine 500 ML ONCE ONE 10/05 1145 AC 10/05 ON-Q Ball 1 BAG INJ 10/07 0524 1756 Sodium Chloride 1,000 ML Q13H 10/07 0000 AC IV Sodium Chloride 1,000 ML BOLUS ONE 10/06 1215 CAN IV 10/06 1314 Sodium Chloride 500 ML BOLUS ONE 10/06 1215 DC 10/06 IV 10/06 1314 1220 Sodium Chloride 1,000 ML Q10H 10/05 2045 DC 10/06 IV 0608 Zolpidem Tartrate 5 MG AT BEDTIME 10/06 2200 DC PO Zolpidem Tartrate 5 MG AT BEDTIME PRN 10/05 2315 AC 10/05 PO 2306 Review of Systems Review of Systems Constitutional: Reports: weakness. Denies: chills, diaphoresis, fever, malaise, unexplained weight loss. EENTM: Denies: blurred vision, double vision, visual changes, eye pain. Cardiovascular: Denies: chest pain, edema, orthopena, palpitations. Respiratory: Denies: cough, hemoptysis, orthopnea, short of breath. GI: Denies: abdominal pain, bloating, constipation, diarrhea. Genitourinary: Reports: no symptoms. Musculoskeletal: Reports: joint pain. Skin: Denies: cysts, change in skin color, change in hair/nails, dryness. Neurological/Psychological: Reports: no symptoms. Hematologic/Endocrine: Reports: no symptoms. Immunologic/Allergic: Reports: no symptoms. All Other Systems: Reviewed and Negative Past History Travel History Traveled to [place] past 21 day No Medical History Blood Transfusion Hx: No Neurological: NONE EENT: NONE Cardiovascular: diastolic CHF, hypertension Respiratory: NONE Gastrointestinal: NONE Hepatic: NONE Renal: NONE Musculoskeletal: degen joint disease, osteoarthritis Psychiatric: NONE Endocrine: diabetes Blood Disorders: NONE Cancer(s): NONE HOUSE STEWARD/STEWARDESS/Reproductive: NONE Surgical History Surgical History: non-contributory Psychosocial History Where Do You Live? Home Smoking Status: Current Everyday Smoker Functional Ability ADLs Independent: dressing, eating, toileting, bathing. Ambulation: independent IADLs Independent: shopping, housework, finances, food prep, telephone. Exam & Diagnostic Data Last 24 Hrs of Vital Signs/I&O Vital Signs Date Time Temp Pulse Resp B/P Pulse O2 O2 Flow FiO2 Ox Delivery Rate 10/06 1208 Room Air 10/06 1204 Room Air 10/06 1155 Room Air 10/06 0812 85 164/80 10/06 0500 98.1 88 18 170/80 93 Room Air 10/06 0058 98.0 88 18 162/82 93 Room Air 10/05 2311 150/80 10/05 2250 98.1 99 20 96 Room Air 10/05 2003 97.9 88 20 130/64 94 Room Air 10/05 1850 98.2 92 14 144/60 95 Room Air Intake & Output 10/06 1600 10/06 0800 10/06 0000 Intake Total 1280 2400 Output Total 1250 601 Balance 30 1799 Intake, IV 800 400 Intake, Oral 480 2000 Number 3 Bowel Movements Output, Stool 1 Output, Urine 1250 600 Patient 108.862 kg Weight Physical Exam General Appearance: no apparent distress, alert, awake Head: atraumatic, normal appearance Eyes: Bilateral: PERRL, EOMI. Ears, Nose, Throat: normal pharynx, normal ENT inspection Neck: normal inspection, supple Respiratory: normal breath sounds, chest non-tender, no respiratory distress Cardiovascular: regular rate/rhythm Peripheral Pulses: 2+ brachial (R), 2+ brachial (L), 2+ radial (R), 2+ radial (L) Gastrointestinal: normal bowel sounds, soft, non-tender Back: normal inspection Extremities: right knee bandaged and in cast after the fall Neurologic/Psych: awake, alert, oriented x 3 Cranial Nerves: normal hearing, normal speech, PERRL Skin: intact, normal color Lymphatic: no anterior cervical moira Assessment/Plan Impression/Plan: This is a 56-year-old female with past medical history of hypertension, diastolic CHF, brx-ylllqin-rcwtoikhw diabetes mellitus, osteoarthritis, underwent an elective right total knee replacement on 10/05/2016, medical consult was being called for hyperglycemia however a rapid response was called after she had a mechanical fall, was found to be hypotensive into the 86/58 mmHg with heart rate of 101, respiration of 18, saturation of 98% during the rapid response and subsequently she was transferred to ICU for management of low blood pressure. After receiving one liters of IV normal saline bolus in the ICU patient's blood pressure improved to 111/86. She is hemodynamically stable while in the ICU. Problem list along with assessment and plan. Problem #1 status post right knee orthoplasty, the wound opening up after mechanical fall. Dr. Cutler and surgical team is following the patient. Right hip x-ray status post a fall suboptimal and no lateral projection was visualized. Right knee was dislocated, no acute fracture was identified. Patient is nothing by mouth currently. Plan to take her back to the OR for orthopedic today evening. Pain management with IV when necessary Dilaudid for severe pain, morphine for moderate and Tylenol for mild pain. #2 history of diabetes mellitus with hyperglycemia. Today morning Dr. forrest saw the patient, endocrinology has been following. He was started on Levemir units twice a day and was started on NovoLog sliding scale. Continue to monitor fingersticks every [address] forrest was called back again, the NovoLog sliding scale was adjusted as she is nothing by mouth currently for anticipated surgical intervention. Levemir will continue to keep the same dosage. Continue to monitor fingersticks ask about. Problem #3 hypertension. We'll hold all antihypertensive medications. Systolic blood pressure now ranging around 110-120. Continue to monitor blood pressure closely. Problem #4 diarrhea She had one episode of diarrhea while on general medicine floor. Diarrhea persisted and was send stool for C. difficile. Patient is full code. Mild/moderate and severe pain pathway. DVT prophylaxis with alps npo for Sx latter today. Consult Acknowledgment - Thank you for your consult request. JEFFERY ALCARAZ MD 10/06/16 1420: Past History Family History Relations & Conditions If Any: Relation not specified for: *No pertinent family history Exam & Diagnostic Data Last 48 Hrs of Labs/Rich: Laboratory Tests 10/06/16 1205: Anion Gap 12, Estimated GFR > 60, BUN/Creatinine Ratio 32.9 H, Troponin I < 0.01 10/06/16 0640: Anion Gap 12, Estimated GFR > 60, BUN/Creatinine Ratio 43.3 H, CBC w Diff NO MAN DIFF REQ, RBC 4.40, MCV 93.2, MCH 30.4, RDW 13.5, MPV 11.0 H, Gran % 87.7 H, Lymphocytes % 7.4 L, Monocytes % 4.9, Eosinophils % 0, Basophils % 0 L, Absolute Granulocytes 10.9 H, Absolute Lymphocytes 0.9 L, Absolute Monocytes 0.6, Absolute Eosinophils 0, Absolute Basophils 0, PUBS MCHC 32.6 L 10/05/161999: Anion Gap 17 H, Estimated GFR 52 L, BUN/Creatinine Ratio 20.9 Assessment/Plan Other Findings/Comments: Jeffery Cardona M.D. have examined this patient, reviewed available EMR data, personally reviewed images, discussed with resident/PA/GENERATOR REBUILDER, discussed management plan with housestaff and nursing staff, discussed managment plan all of healthcare providers, discussed management plan with patient and/or family, agreed with resident/PA/GENERATOR REBUILDER. The past history and parts of the chart have been autopopulated. Impression 56-year-old woman transferred to the ICU for a brief episode of hypotension after sustaining a mechanical fall injuring her right knee that was recently operated on by orthopedic surgery. Hypertension has fully resolved and could have been either vasovagal/dehydration /blood loss which appears to be less likely. Right knee is dislocated based on X -ray imaging. No acute fractures. Plan - f/u orthopedic surgery to return to the OR - NPO for now - f/u endocrinology with respect to her DM - smoking cessation counseling - nicotine patch replacement at this time - iv fluid hydration - hemodynamic monitoring - monitor cbc DVT prophylaxis at all times - per orthopedic surgery given OR plan If remains hemodynamically stable and no blood loss post surgery can be downgraded at that time. TTS 40 min Consult Acknowledgment - Thank you for your consult request.
--- NOTE | 2016-10-06 13:30 | RADIOLOGY REPORT ---
EXAMINATION: XR HIP, RIGHT XR KNEE, RIGHT CLINICAL INFORMATION: Periprosthetic the fracture COMPARISON: None TECHNIQUE: 2 views of the right hip. 2 views of the right knee. FINDINGS: Right hip: Assessment is limited due to patient body habitus. Alignment on the frontal view appears preserved; the hip joint is not adequately visualized in the lateral projection. No gross evidence of fracture. Right knee: Patient is status post total knee arthroplasty. There is dislocation at the knee, with the tibia appearing rotated and dislocated anteriorly relative to the femur. Femoral and tibial hardware components individually appear well-seated. There is surrounding soft tissue gas and multiple ozzy. No acute appearing fracture is seen. IMPRESSION: 1. Right knee: Dislocation status post right total knee arthroplasty. No acute fracture identified. 2. Right hip: Suboptimally assessed due to patient body habitus; not adequately visualized in the lateral projection. Otherwise no acute findings identified.
--- NOTE | 2016-10-06 14:05 | Event Note ---
Event Note Event Note: S: Patient transferred to the ICU for close monitoring status post mechanical fall. B: Spoke with endocrinology for further recommendations on adequate coverage especially given the fact that the patient is now nothing by mouth. A/R: Verbal conversation with Dr. Jones who recommends that the patient be placed on NovoLog every 4 sliding scale. Less than 150: No coverage 150-200: 2 Units 201-250: 4 Units 251-300: 6 Units 301-350: 8 Units 351-400: 10 Units >400: 12 Units The patient can be continued on Levemir.
--- NOTE | 2016-10-06 23:26 | PN- Orthopedic ---
Subjective Subjective: Postop check: Patient's sleeping in bed upon examination. She awakens without difficulty. She has no pain in the right leg. She denies any other complaints. She had mild itching earlier this evening and was given 25 mg of Benadryl IV with complete relief. There is no rash or other signs of allergic reaction. Objective Vital Signs and I&Os Vital Signs Date Time Temp Pulse Resp B/P Pulse O2 O2 Flow FiO2 Ox Delivery Rate 10/06 1208 Room Air 10/06 1204 Room Air 10/06 1155 Room Air 10/06 0812 85 164/80 10/06 0500 98.1 88 18 170/80 93 Room Air 10/06 0058 98.0 88 18 162/82 93 Room Air Intake & Output 10/06 1600 10/06 0800 10/06 0000 10/05 1600 10/05 0800 10/05 0000 Intake Total 1280 2400 Output Total 1250 601 Balance 30 1799 Intake, IV 800 400 Intake, Oral 480 2000 Number 3 Bowel Movements Output, Stool 1 Output, Urine 1250 600 Patient 240 lb Weight Physical Exam: Well-developed well-nourished no apparent distress. HEENT: Atraumatic, extraocular motion intact Neck: Supple, no lymphadenopathy Respiratory: No respiratory distress Extremities: No edema RIGHT lower extremity dressing in place, clean dry and intact Knee immobilizer in place Hemovac in place with expected amount of blood noted Neurovascularly intact distally, wiggles toes, plantar/flexion dorsiflexion normal, DP pulses intact right lower extremity Bilateral calves are supple, nontender. Neuro: Alert and oriented x3 Psych: Mood affect normal, normal memory normal judgment. Skin: Warm and dry, no rash on exposed skin Assessment/Plan Assessment/Plan Postop day 1 status post right total knee arthroplasty with postoperative complication of fall, wound dehiscence and extension of the wound into the proximal medial lower leg with anterior and lateral knee dislocation and complete rupture of MCL, now postop day 0 status post washout, polyethylene spacer revision to a posterior stabilized knee with reconstruction of MCL, proximal lower leg wound repair -Orthopedicly, the patient is stable postoperatively -Knee immobilizer on at all times for the next 6 weeks -Out of bed with assistance only -Physical therapy tomorrow, weightbearing as tolerated right lower extremity -Aspirin for DVT prophylaxis -Ancef 1 g every 8 hours until patient discharged from hospital, then may remain off antibiotics -Dressing change in 2 days -Pull Hemovac on 10/08 -Orthopedic follow-up in [address] Hay -Continuing cardiac monitoring per medicine -Postoperative hyperglycemia, needs tight glycemic control due to increased risk of infection, appreciate endocrine input Core Measures/Miscellaneous Venous Thromboembolism VTE Risk Factors: Age > 40, Smoking, Surgery VTE Contraindications: No Contraindications VTE Diagnosis: No VTE Type: NONE VTE Confirmed by (Test): NONE Beta Cody Is Beta Cody a Home Med? No Antibiotics Is Patient on Antibiotics? Yes If Yes: prophylaxis
[2016-10-07] VITALS (12 sets, daily range): BP systolic 86–148; BP diastolic 58–80
--- NOTE | 2016-10-07 05:57 | PN- Orthopedic ---
Subjective Subjective: Patient sleepy but arousable. No complaints of pain, she is comfortable. No acute events overnight. Objective Vital Signs and I&Os Vital Signs Date Time Temp Pulse Resp B/P Pulse O2 O2 Flow FiO2 Ox Delivery Rate 10/07 0400 95 Nasal 1.0L Cannula 10/07 0000 100 Nasal 2.0L Cannula 10/07 0000 97.4 92 18 148/80 100 Nasal 2.0L Cannula 10/06 1208 Room Air 10/06 1204 Room Air 10/06 1155 Room Air 10/06 0812 85 164/80 Intake & Output 10/07 0810/07 0000 10/06 1600 10/06 0810/06 0000 10/05 1600 Intake Total 500 1280 2400 Output Total 430 1250 601 Balance 70 30 1799 Intake, IV 300 800 400 Intake, Oral 129 895 2412 Number 0 3 Bowel Movements Output, 30 Drainage Output, Stool 1 Output, Urine 400 1250 600 Patient 240 lb Weight Physical Exam: Well-developed well-nourished no apparent distress. HEENT: Atraumatic, extraocular motion intact Neck: Supple, no lymphadenopathy Respiratory: No respiratory distress Extremities: No edema RIGHT lower extremity dressing in place, clean dry and intact Knee immobilizer in place Hemovac in place approximately 20 mL of blood noted Neurovascularly intact distally, wiggles toes, plantar/flexion dorsiflexion normal, DP pulses intact right lower extremity Bilateral calves are supple, nontender. Neuro: Alert and oriented x3 Psych: Mood affect normal, normal memory normal judgment. Skin: Warm and dry, no rash on exposed skin Results Last 48 Hours of Labs: Laboratory Tests 10/07 10/06 10/06 0510 1205 0640 Chemistry Sodium (137 - 145 mmol/L) Pending 136 L 136 L Potassium (3.5 - 5.1 mmol/L) Pending 3.9 4.1 Chloride (98 - 107 mmol/L) Pending 97 L 96 L Carbon Dioxide (22 - 30 mmol/L) Pending 27 28 Anion Gap (5 - 16) Pending 12 12 BUN (7 - 17 mg/dL) 23 H 26 H Creatinine (0.5 - 1.0 mg/dL) 0.7 0.6 Estimated GFR (>60 ml/min) > 60 > 60 BUN/Creatinine Ratio (7 - 25 %) 32.9 H 43.3 H Troponin I (< 0.11 ng/ml) < 0.01 Hematology CBC w Diff Pending NO MAN DIFF REQ WBC (4.8 - 10.8 /CUMM) Pending 12.4 H RBC (4.20 - 5.40 /CUMM) Pending 4.40 Hgb (12.0 - 16.0 G/DL) Pending 13.4 Hct (37 - 47 %) Pending 41.0 MCV (81.0 - 99.0 FL) Pending 93.2 MCH (27.0 - 31.0 PG) Pending 30.4 RDW (11.5 - 14.5 %) Pending 13.5 Plt Count (130 - 400 /CUMM) Pending 112 L MPV (7.4 - 10.4 FL) Pending 11.0 H Gran % (42.2 - 75.2 %) 87.7 H Lymphocytes % (20.5 - 51.1 %) 7.4 L Monocytes % (1.7 - 9.3 %) 4.9 Eosinophils % (0 - 5 %) 0 Basophils % (0.0 - 2.0 %) 0 L Absolute Granulocytes (1.4 - 6.5 /CUMM) 10.9 H Absolute Lymphocytes (1.2 - 3.4 /CUMM) 0.9 L Absolute Monocytes (0.10 - 0.60 /CUMM) 0.6 Absolute Eosinophils (0.0 - 0.7 /CUMM) 0 Absolute Basophils (0.0 - 0.2 /CUMM) 0 PUBS MCHC (33.0 - 37.0 G/DL) Pending 32.6 L 10/06 1999 Chemistry Sodium (137 - 145 mmol/L) 133 L Potassium (3.5 - 5.1 mmol/L) 4.6 Chloride (98 - 107 mmol/L) 90 L Carbon Dioxide (22 - 30 mmol/L) 26 Anion Gap (5 - 16) 17 H BUN (7 - 17 mg/dL) 23 H Creatinine (0.5 - 1.0 mg/dL) 1.1 H Estimated GFR (>60 ml/min) 52 L BUN/Creatinine Ratio (7 - 25 %) 20.9 Assessment/Plan Assessment/Plan Postop day 2 status post right total knee arthroplasty with postoperative complication of fall, wound dehiscence and extension of the wound into the proximal medial lower leg with anterior and lateral knee dislocation and complete rupture of MCL, now postop day 1 status post washout, polyethylene spacer revision to a posterior stabilized knee with reconstruction of MCL, proximal lower leg wound repair -Orthopedicly, the patient is stable postoperatively -Follow labs this a.m. -Knee immobilizer on at all times for the next 6 weeks -Out of bed with assistance only -Physical therapy today, weightbearing as tolerated right lower extremity -Aspirin for DVT prophylaxis -Ancef 1 g every 8 hours until patient discharged from hospital, then may remain off antibiotics -Dressing change in tomorrow -Pull Hemovac on 10/08 -Orthopedic follow-up in [address] Hay -Continuing cardiac monitoring per medicine -Postoperative hyperglycemia, needs tight glycemic control due to increased risk of infection, appreciate endocrine input Core Measures/Miscellaneous Venous Thromboembolism VTE Risk Factors: Age > 40, Smoking, Surgery VTE Contraindications: No Contraindications VTE Diagnosis: No VTE Type: NONE VTE Confirmed by (Test): NONE Beta Cody Is Beta Cody a Home Med? No Antibiotics Is Patient on Antibiotics? Yes If Yes: prophylaxis
[2016-10-07 06:04] LABS: ABSOLUTE BASOPHIL COUNT 0 /CUMM (0.0-0.2); ABSOLUTE EOSINOPHIL COUNT 0 /CUMM (0.0-0.7); ABSOLUTE GRANULOCYTE CT 5.7 /CUMM (1.4-6.5); ABSOLUTE LYMPH COUNT 1.7 /CUMM (1.2-3.4); ABSOLUTE MONOCYTE COUNT 0.8 /CUMM (0.10-0.60); BASOPHIL % 0.4 % (0.0-2.0); EOSINOPHIL % 0.5 % (0-5); GRANULOCYTE % 68.8 % (42.2-75.2); MEAN CORPUSCULAR HGB 31.6 PG (27.0-31.0); MEAN CORPUSCULAR HGB CONC 33.4 G/DL (33.0-37.0); MEAN CORPUSCULAR VOLUME 94.5 FL (81.0-99.0); MEAN PLATELET VOLUME 10.2 FL (7.4-10.4); PLATELET COUNT 89 /CUMM (130-400); RBC DISTRIBUTION WIDTH 13.8 % (11.5-14.5); RED BLOOD CELL CT 3.31 /CUMM (4.20-5.40); WHITE BLOOD CELL COUNT 8.2 /CUMM (4.8-10.8)
[2016-10-07 06:08] LABS: HEMATOCRIT 31.2 % (37-47)
--- NOTE | 2016-10-07 06:50 | PN- Resident CRCU ---
STEPHAN AGARWAL,[facility] 10/07/16 0650: Subjective HPI/CRCU Issues: Ms. Guardado was seen and examined this morning. She states that she continues to be in a lot of pain. Patient states that her pain is rated a 10 out of 10 described as sharp pain. Pain is located in her right lower extremity from her anterior knee radiating down towards the foot. She is requesting additional pain medication. Patient is currently postop day 1. Tolerating PO intake well. She denies any fever, chills, nausea, vomiting. Objective Vital Signs & I&O Last 8 Hrs of Vitals and I&O: Max temp 98.0 HR 85-92 Systolic bp 130-170 Diastolic bp 60-80 Exam General Appearance: well developed/nourished, no apparent distress, alert, awake , anxious, moderate distress Respiratory: normal breath sounds, chest non-tender, no respiratory distress Cardiovascular: regular rate/rhythm Gastrointestinal: normal bowel sounds, soft, non-tender Extremities: normal inspection, no edema, Right Lower Extremity in knee immobilizer Hemovac in Place, draining. Current Medications: Current Medications Sig/Robert Start time Last Medication Dose Route Stop Time Status Admin Acetaminophen 650 MG Q4P PRN 10/05 1745 AC PO Aspirin 325 MG BID 10/05 2200 AC 10/06 PO 0811 Calcium Carbonate 1,000 MG Q8P PRN 10/06 1230 AC PO Cefazolin Sodium 1 GM Q8H 10/07 1330 CAN N/A 1 UNIT IV 10/08 1329 Cefazolin Sodium 1,000 MG Q8H 10/07 1330 AC IV Cefazolin Sodium 2 GM Q8H 10/06 1400 DC 10/07 N/A 1 UNIT IV 0520 Diphenhydramine HCl 25 MG Q6-PRN PRN 10/06 2230 AC 10/06 IV 2225 Fentanyl Citrate 200 MCG .STK-MED ONE 10/06 1754 DC IM 10/06 1755 Gabapentin 600 MG TID 10/06 1000 AC 10/07 PO 0757 Guaifenesin 10 ML Q4P PRN 10/07 0015 AC PO Hydromorphone HCl 0.5 MG ONCE ONE 10/07 0900 DC 10/07 IV 10/07 0901 0906 Hydromorphone HCl 0.6 MG Q6P PRN 10/07 0830 AC IV Hydromorphone HCl 0.5 MG ONCE ONE 10/07 0800 DC 10/07 IV 10/07 0801 0756 Hydromorphone HCl 0.5 MG ONCE ONE 10/06 1500 DC 10/06 IV 10/06 1501 1453 Hydromorphone HCl 1 MG ONCE ONE 10/06 1245 DC 10/06 IV 10/06 1246 1245 Hydromorphone HCl 2 MG Q4P PRN 10/05 1745 DC PO Hydromorphone HCl 4 MG Q4P PRN 10/05 1745 DC 10/06 PO 0608 Insulin Aspart 0 TIDAC/HS 10/07 1200 AC SC Insulin Aspart 0 Q4 10/06 1400 DC 10/07 SC 0520 Insulin Aspart 0 TIDAC/HS 10/06 1200 DC SC Insulin Detemir 12 UNITS BID 10/06 1000 AC 10/06 SC 2220 Insulin Human Regular 0 TIDAC/HS 10/06 1700 CAN SC Ketorolac 15 MG Q8P PRN 10/05 1745 AC 10/06 Tromethamine IV 10/08 1742 1028 Losartan Potassium 50 MG DAILY 10/06 1000 DC PO Losartan Potassium 50 MG DAILY 10/06 1000 AC 10/06 PO 0812 Midazolam HCl 2 MG .STK-MED ONE 10/06 1754 DC IM 10/06 1755 Morphine Sulfate 2 MG Q2P PRN 10/05 1745 AC 10/07 IV 0710 Nicotine 21 MG 2000 10/06 2000 AC 10/06 TOP 2212 Omeprazole 40 MG DAILY AC 10/06 0700 DC 10/06 PO 0607 Ondansetron HCl 4 MG Q6P PRN 10/05 1745 AC IV Oxycodone/ 1 TAB Q4P PRN 10/06 1045 AC Acetaminophen PO Oxycodone/ 2 TAB Q4P PRN 10/06 1045 DC 10/06 Acetaminophen PO 2213 Pantoprazole Sodium 40 MG DAILY 10/06 1222 AC 10/06 IV 1453 Pioglitazone HCl 45 MG DAILY 10/06 1000 DC PO Pioglitazone HCl 45 MG DAILY 10/06 1000 DC 10/06 PO 0811 Polyethylene Glycol 17 GM DAILY 10/06 1000 DC PO Potassium Chloride 40 MEQ ONCE ONE 10/07 0645 DC 10/07 PO 10/07 0646 0909 Promethazine HCl 12.5 MG Q6P PRN 10/05 1745 AC IV 10/12 1359 Ropivacaine 500 ML ONCE ONE 10/05 1145 DC 10/05 ON-Q Ball 1 BAG INJ 10/07 0524 1756 Sodium Chloride 1,000 ML Q13H 10/07 0000 DC 10/07 IV 0055 Sodium Chloride 1,000 ML BOLUS ONE 10/06 1215 CAN IV 10/06 1314 Sodium Chloride 500 ML BOLUS ONE 10/06 1215 DC 10/06 IV 10/06 1314 1220 Sodium Chloride 1,000 ML Q10H 10/05 2045 DC 10/06 IV 0608 Zolpidem Tartrate 5 MG AT BEDTIME PRN 10/05 2315 AC 10/05 PO 2306 Impression/Plan Impression/Problem List Impression: Ms Guardado is a 56 YO female with past medical history of hypertension, diastolic CHF, [id number] diabetes mellitus, osteoarthritis, degenerative joint disease underwent an elective right total knee replacement on 10/05/[address] Hya. She Had a rapid response called on 10/06/2016 after experiencing a fall, while the patient was attempting to bathe herself. She was taken for a washout on the evening of 10/06/2016 and subsequently sent to the intensive care unit for additional monitoring due to hypotension. Problem List: #Status post right knee arthroplasty after wash out following fall on 2016.POD Day 1 #Diabetes mellitus with hyperglycemia #Hypertension #Diarrhea Respiratory Patient's respiratory function is stable. She saturating well on room air. ID Patient was started on prophylaxis antibiotics cefazolin 1000 g every 8. She'll be continued on this regimen until the time of discharge at which point she can be followed off antibiotics.. Hemovac which was in place and draining well we need to be pulled on 10/08/2016. Cardiovascular Patient seems stable from a cardiovascular perspective. She continues to be in a considerable amount of pain. Multiple doses of Dilaudid this a.m. was inadequate to provide pain relief. The patient was subsequently started on a dilaudid PSYCHOMETRIC EXAMINER pump. Hematology H/H this am: 10.4 and 31.2 respectively we'll repeat CBC on 10/08/2016. Any acute drops may warrant transfusion. Metabolic Patient has been tolerating by mouth intake well. Her Levemir dose was adjusted to 16 units twice a day following an increase in FSG. We'll continue her on the NovoLog sliding scale. Alimentary Patient is tolerating by mouth intake well. She has had a good appetite this morning. She states that although she diarrhea 10/06/2016 she has not complained of any loose stools. DVT: Eliquis 2.5 g twice a day this was started by the surgical team. The patient will need to be on this medication for the next 3 weeks for DVT prophylaxis. Code: Full code Problem List: 1. Total knee replacement status 2. HTN (hypertension) 3. Hyperglycemia 4. Diabetes 5. Unilateral primary osteoarthritis, right knee Pain Ratin Tomorrow's Labs & Rationales: CBC ICU bundle Plan Code Status: Full Code JEFFERY ALCARAZ MD 10/07/16 1010: Impression/Plan Plan DVT/Prophylaxis: pharmacological Attending MD Review Statement Attending Sign Off Attending Cosign Statement: I have: examined this patient, reviewed avalbl EMR data, personally reviewd images, discussd w/resident/PA/SASH ASSEMBLER, discussed mgmt plan w/sirisha, discussed mgmt plan w/CM, discussed mgmt plan w/pt, agreed w/resident/PA/SASH ASSEMBLER, amended to note. Other Findings: I, Jeffery Alcaraz M.D. have examined this patient, reviewed available EMR data, personally reviewed images, discussed with resident/PA/SASH ASSEMBLER, discussed management plan with housestaff and nursing staff, discussed managment plan all of healthcare providers, discussed management plan with patient and/or family, agreed with resident/PA/SASH ASSEMBLER. The past history and parts of the chart have been autopopulated. Impression 56-year-old woman transferred to the ICU for a brief episode of hypotension after sustaining a mechanical fall injuring her right knee that was recently operated on by orthopedic surgery. Hypertension has fully resolved and could have been either vasovagal/dehydration /blood loss which appears to be less likely. Right knee is dislocated based on X -ray imaging. No acute fractures. Plan - f/u orthopedic surgery and endocrinology - smoking cessation counseling - nicotine patch replacement at this time - hemodynamic monitoring - monitor cbc - pain control DVT prophylaxis at all times - per orthopedic surgery TTS 35 min Transfer to
--- NOTE | 2016-10-07 07:05 | Operative Report ---
Operative/Inv Procedure Report Surgery Date: 10/06/16 Name of Procedure: 1. Right knee irrigation and non-excisional debridement 2. Right knee modular component exchange 3. Right knee medial collateral ligament repair Pre-Operative Diagnosis: 1. Right knee periprosthetic dislocation 2. Right knee dehiscence Post-Operative Diagnosis: Same Estimated Blood Loss: 200 Surgeon/Patient Account Liaison: RITA AGARWAL,MARCY Loya Anesthesia: general endotracheal tube Operative/Procedure Note Note: The patient was postoperative day #1 from an uncomplicated right total knee replacement. She fell, dislocating her right newly replaced knee as well as dehiscing her entire incision. She is taken to the operating room for irrigation and debridement, modular component exchange, and medial collateral ligament repair. Description of procedure: The patient was taken to the operating room and positively identified. After induction of general anesthesia she was positioned supine on the operative room table and all bony prominences were well-padded. Preoperative antibiotics were administered. The right lower extremity was prepped and draped in usual sterile fashion. After briefly irrigating the hematoma the knee was provisionally reduced and inspected. It was noted that the surgical incision had traumatically extended distally and medially over the length of approximately 10 cm. The MCL was completely ruptured. The patella tendon and quad tendon were found to be intact. No patella fracture was noted. The previously placed Sanchez ozzy were removed and the polyethylene was disimpacted. The knee was then irrigated with 3 L of sterile saline. The knee cavity was then filled with Betadine and allowed to sit for several minutes. After the Betadine was evacuated with the knee was again washed with 3 L of sterile saline. The leaving the knee would require extra stability due to the MCL damage, it was trialed with a constrained tibial insert. A new [place] triathlon size 3 x 13 TS insert was impacted into the well cleaned tibial tray. The back of the knee was padded such that the knee was flexed approximately 20 and placed in a varus orientation. The remainder of the proximal MCL and portions of the medial retinaculum were then tensioned over the medial tibial metaphysis and fixed with a pair of Sanchez ozzy. A medium Hemovac drain was left within the knee joint itself. The extensor mechanism and patellar remainder of the patellar retinaculum were repaired using interrupted #1 Vicryl sutures. The skin was reapproximated with interrupted 2-0 Vicryl sutures and closed with ozzy. A sterile dressing was applied, and a knee immobilizer was placed. She was awakened and taken to the recovery room in satisfactory condition.
--- NOTE | 2016-10-07 11:22 | PN- Diabetes ---
See Addendum Assessment/Plan Assessment: 56-year-old lady with a PMH of HTN, OA, diabetes type 2 compliacted with diabetic neuropathy was admitted and status post right knee surgery. She had to go to OR again yesterday after she fell. Now she is in ICU. She was put on Levemir 12 units twice a day and Novolog coverage every 4 hours after she was back from OR. Her FSGs were 126, 248 and 215. Now she is on DM diet. She complains of having pain. Plan: 1. Inpatient Diabetes Orders Adjustment on Basal Insulin: 1. continue Levemir 12 units twice a day; 2. stop NISS every 4 hours; 3. restart previous Novolog coverage before meals and Novolog coverage at bedtime; 4. monitor FSGs. will follow. Subjective Subjective: She complains of having pain. Objective Last 24 Hrs of Vital Signs/I&O Vital Signs Date Time Temp Pulse Resp B/P Pulse O2 O2 Flow FiO2 Ox Delivery Rate 10/07 1053 Room Air 10/07 1034 98.1 77 20 126/77 10/07 0400 95 Nasal 1.0L Cannula 10/07 0000 100 Nasal 2.0L Cannula 10/07 0000 97.4 92 18 148/80 100 Nasal 2.0L Cannula 10/06 1208 Room Air 10/06 1204 Room Air 10/06 1155 Room Air Intake & Output 10/07 1600 10/07 0800 10/07 0000 Intake Total 646 500 Output Total 60 430 Balance 586 70 Intake, IV 566 300 Intake, Oral 80 200 Number 0 Bowel Movements Output, 60 30 Drainage Output, Urine 400 Findings Pertinent Lab/Rich Results: Laboratory Tests 10/07 10/06 0510 1205 Chemistry Sodium (137 - 145 mmol/L) 137 136 L Potassium (3.5 - 5.1 mmol/L) 3.5 3.9 Chloride (98 - 107 mmol/L) 101 97 L Carbon Dioxide (22 - 30 mmol/L) 30 27 Anion Gap (5 - 16) 6 12 BUN (7 - 17 mg/dL) 23 H Creatinine (0.5 - 1.0 mg/dL) 0.7 Estimated GFR (>60 ml/min) > 60 BUN/Creatinine Ratio (7 - 25 %) 32.9 H Troponin I (< 0.11 ng/ml) < 0.01 Hematology CBC w Diff NO MAN DIFF REQ WBC (4.8 - 10.8 /CUMM) 8.2 RBC (4.20 - 5.40 /CUMM) 3.31 L Hgb (12.0 - 16.0 G/DL) 10.4 L Hct (37 - 47 %) 31.2 L MCV (81.0 - 99.0 FL) 94.5 MCH (27.0 - 31.0 PG) 31.6 H RDW (11.5 - 14.5 %) 13.8 Plt Count (130 - 400 /CUMM) 89 L MPV (7.4 - 10.4 FL) 10.2 Gran % (42.2 - 75.2 %) 68.8 Lymphocytes % (20.5 - 51.1 %) 21.0 Monocytes % (1.7 - 9.3 %) 9.3 Eosinophils % (0 - 5 %) 0.5 Basophils % (0.0 - 2.0 %) 0.4 Absolute Granulocytes (1.4 - 6.5 /CUMM) 5.7 Absolute Lymphocytes (1.2 - 3.4 /CUMM) 1.7 Absolute Monocytes (0.10 - 0.60 /CUMM) 0.8 H Absolute Eosinophils (0.0 - 0.7 /CUMM) 0 Absolute Basophils (0.0 - 0.2 /CUMM) 0 PUBS MCHC (33.0 - 37.0 G/DL) 33.4
--- NOTE | 2016-10-07 11:56 | PN- Att Addend ---
Attending Addendum Attending Brief Note Patient seen and examined, was complaining of excruciating pain in her right knee. She was given morphine and Dilaudid but nothing worked. Patient underwent repair of the right knee yesterday. She was status post right knee replacement postop day #1 yesterday when she fell at the knee opened. Due to traumatic injury as well as dislocation of the knee prosthesis, she was taken to OR again yesterday and it was surgically repaired. Vital Signs Date Time Temp Pulse Resp B/P Pulse O2 O2 Flow FiO2 Ox Delivery Rate 10/07 1053 Room Air 10/07 1034 98.1 77 20 126/77 10/07 0800 94 Room Air Room Air 10/07 0800 98.3 77 22 113/69 94 Room Air Room Air 10/07 0400 95 Nasal 1.0L Cannula 10/07 0000 100 Nasal 2.0L Cannula 10/07 0000 97.4 92 18 148/80 100 Nasal 2.0L Cannula 10/06 1208 Room Air 10/06 1204 Room Air 10/06 1155 Room Air on exam; aox3, mild-mod distress 2/2 to pain. cv; s1,s2, rrr resp; clear abd; soft, nt, bs+ ext; no edema ms: + immobilzer on right knee. Laboratory Tests 10/07 10/06 0510 1205 Chemistry Sodium (137 - 145 mmol/L) 137 136 L Potassium (3.5 - 5.1 mmol/L) 3.5 3.9 Chloride (98 - 107 mmol/L) 101 97 L Carbon Dioxide (22 - 30 mmol/L) 30 27 Anion Gap (5 - 16) 6 12 BUN (7 - 17 mg/dL) 23 H Creatinine (0.5 - 1.0 mg/dL) 0.7 Estimated GFR (>60 ml/min) > 60 BUN/Creatinine Ratio (7 - 25 %) 32.9 H Troponin I (< 0.11 ng/ml) < 0.01 Hematology CBC w Diff NO MAN DIFF REQ WBC (4.8 - 10.8 /CUMM) 8.2 RBC (4.20 - 5.40 /CUMM) 3.31 L Hgb (12.0 - 16.0 G/DL) 10.4 L Hct (37 - 47 %) 31.2 L MCV (81.0 - 99.0 FL) 94.5 MCH (27.0 - 31.0 PG) 31.6 H RDW (11.5 - 14.5 %) 13.8 Plt Count (130 - 400 /CUMM) 89 L MPV (7.4 - 10.4 FL) 10.2 Gran % (42.2 - 75.2 %) 68.8 Lymphocytes % (20.5 - 51.1 %) 21.0 Monocytes % (1.7 - 9.3 %) 9.3 Eosinophils % (0 - 5 %) 0.5 Basophils % (0.0 - 2.0 %) 0.4 Absolute Granulocytes (1.4 - 6.5 /CUMM) 5.7 Absolute Lymphocytes (1.2 - 3.4 /CUMM) 1.7 Absolute Monocytes (0.10 - 0.60 /CUMM) 0.8 H Absolute Eosinophils (0.0 - 0.7 /CUMM) 0 Absolute Basophils (0.0 - 0.2 /CUMM) 0 PUBS MCHC (33.0 - 37.0 G/DL) 33.4 Assessmant and recommendations: 56 y/o F with pmh sig for HTN, DJD, OA, diabetes is s/p right knee replacement originally on 10/05/2016. Yesterday patient fell and a rapid response was called. Patient was put in the bed and when the dressing opened, it was found that her right knee which was surgically repaired was completely open. Patient dropped her blood pressure in 80s. She was complaining of some epigastric pain and nausea. EKG was negative and troponin was negative. Patient was transferred to ICU for close monitoring. Underwent repair of the right knee again which also showed that by that time she had torn her meniscus. She had been started on antibiotics per orthopedic. This morning her vital signs are stable but her pain is not controlled at all. I spoke with surgical PA and air going to start her on Dilaudid MATZO FORMING MACHINE OPERATOR pump. Blood sugars are in optimal range on current regimen. Continue other current medications. Patient has been started on Eliquis which I'm presuming is for DVT prophylaxis but please double check with surgical PA. Patient can be downgraded to general medicine floor. She is still on orthopedic service with medicine consulting.
[2016-10-08] VITALS: BP 120/66
[2016-10-08 00:30] VITALS: BP 120/66
[2016-10-08 00:53] VITALS: BP 120/66
[2016-10-08 06:55] VITALS: BP 160/76
[2016-10-08 08:16] LABS: ABSOLUTE BASOPHIL COUNT 0 /CUMM (0.0-0.2); ABSOLUTE EOSINOPHIL COUNT 0.1 /CUMM (0.0-0.7); ABSOLUTE GRANULOCYTE CT 4.7 /CUMM (1.4-6.5); ABSOLUTE LYMPH COUNT 1.6 /CUMM (1.2-3.4); ABSOLUTE MONOCYTE COUNT 0.6 /CUMM (0.10-0.60); BASOPHIL % 0.3 % (0.0-2.0); EOSINOPHIL % 1.3 % (0-5); GRANULOCYTE % 66.8 % (42.2-75.2); MEAN CORPUSCULAR HGB 31.6 PG (27.0-31.0); MEAN CORPUSCULAR HGB CONC 33.8 G/DL (33.0-37.0); MEAN CORPUSCULAR VOLUME 93.4 FL (81.0-99.0); MEAN PLATELET VOLUME 10.8 FL (7.4-10.4); RBC DISTRIBUTION WIDTH 13.9 % (11.5-14.5); RED BLOOD CELL CT 3.22 /CUMM (4.20-5.40)
--- NOTE | 2016-10-08 09:07 | PN- Orthopedic ---
See Addendum Subjective Subjective: Patient is having more pain overnight, started on MS Contin last night which helped mildly. She denies any fever or flulike illness. She complains of mild swelling in her right foot Objective Vital Signs and I&Os Vital Signs Date Time Temp Pulse Resp B/P Pulse O2 O2 Flow FiO2 Ox Delivery Rate 10/08 0655 98.2 96 20 160/76 92 Room Air 10/08 0053 99.4 98 20 120/66 94 Room Air 10/08 0030 99.4 98 20 120/66 10/08 0000 99.4 98 20 120/66 10/07 2215 98.8 98 20 122/60 92 Room Air 10/07 2200 98.8 98 20 120/60 10/07 2008 98.6 98 20 132/60 92 Room Air 10/07 2000 98.6 98 20 132/60 10/07 1809 98.8 103 20 140/60 92 Room Air 10/07 1800 98.8 103 20 140/60 10/07 1611 98.6 101 20 142/76 96 Room Air 10/07 1600 98.6 101 20 142/76 10/07 1400 99.2 99 20 144/80 10/07 1140 101 18 86/58 10/07 1053 Room Air 10/07 1034 98.1 77 20 126/77 Intake & Output 10/08 1600 10/08 0800 10/08 0000 10/07 1600 10/08 0700 10/07 0000 Intake Total 200 700 778 646 500 Output Total 465 600 350 60 430 Balance -265 100 428 586 70 Intake, IV 278 566 300 Intake, Oral 200 700 500 80 200 Number 0 0 Bowel Movements Output, 65 50 60 30 Drainage Output, Urine 400 600 300 400 Physical Exam: Well-developed well-nourished no apparent distress. HEENT: Atraumatic, extraocular motion intact Neck: Supple, no lymphadenopathy Respiratory: No respiratory distress Extremities: No edema RIGHT lower extremity dressing in place, Hemovac drain pulled Incision line is clean dry and intact with minimal bloody drainage. No signs of infection. Mild joint effusion Compression wrap in place. ALPS in place Neurovascularly intact distally Bilateral calves are supple, nontender. Mild swelling dorsum of right foot, dorsal pedal pulse intact Neuro: Alert and oriented x3 Psych: Mood affect normal, normal memory normal judgment. Skin: Warm and dry, no rash on exposed skin Results Last 48 Hours of Labs: Laboratory Tests 10/08 10/07 10/06 0610 0510 1205 Chemistry Sodium (137 - 145 mmol/L) 139 137 136 L Potassium (3.5 - 5.1 mmol/L) 4.2 3.5 3.9 Chloride (98 - 107 mmol/L) 104 101 97 L Carbon Dioxide (22 - 30 mmol/L) 30 30 27 Anion Gap (5 - 16) 6 6 12 BUN (7 - 17 mg/dL) 20 H 23 H Creatinine (0.5 - 1.0 mg/dL) 0.5 0.7 Estimated GFR (>60 ml/min) > 60 > 60 BUN/Creatinine Ratio (7 - 25 %) 32.9 H Glucose (65 - 99 mg/dL) 158 H Calcium (8.4 - 10.2 mg/dL) 8.5 Phosphorus (2.5 - 4.5 mg/dL) 3.2 Magnesium (1.6 - 2.3 mg/dL) 1.9 Total Bilirubin (0.2 - 1.3 mg/dL) 0.5 AST (14 - 36 U/L) 22 ALT (9 - 52 U/L) 31 Troponin I (< 0.11 ng/ml) < 0.01 Albumin (3.5 - 5.0 g/dL) 2.8 L Hematology CBC w Diff Pending NO MAN DIFF REQ WBC (4.8 - 10.8 /CUMM) Pending 8.2 RBC (4.20 - 5.40 /CUMM) Pending 3.31 L Hgb (12.0 - 16.0 G/DL) Pending 10.4 L Hct (37 - 47 %) Pending 31.2 L MCV (81.0 - 99.0 FL) Pending 94.5 MCH (27.0 - 31.0 PG) Pending 31.6 H RDW (11.5 - 14.5 %) Pending 13.8 Plt Count (130 - 400 /CUMM) Pending 89 L MPV (7.4 - 10.4 FL) Pending 10.2 Gran % (42.2 - 75.2 %) Pending 68.8 Lymphocytes % (20.5 - 51.1 %) Pending 21.0 Monocytes % (1.7 - 9.3 %) Pending 9.3 Eosinophils % (0 - 5 %) Pending 0.5 Basophils % (0.0 - 2.0 %) Pending 0.4 Absolute Granulocytes (1.4 - 6.5 /CUMM) Pending 5.7 Absolute Lymphocytes (1.2 - 3.4 /CUMM) Pending 1.7 Absolute Monocytes (0.10 - 0.60 /CUMM) Pending 0.8 H Absolute Eosinophils (0.0 - 0.7 /CUMM) Pending 0 Absolute Basophils (0.0 - 0.2 /CUMM) Pending 0 PUBS MCHC (33.0 - 37.0 G/DL) Pending 33.4 Assessment/Plan Assessment/Plan Postop day 3 status post right total knee arthroplasty with postoperative complication of fall, wound dehiscence and extension of the wound into the proximal medial lower leg with anterior and lateral knee dislocation and complete rupture of MCL, now postop day 2 status post washout, polyethylene spacer revision to a posterior stabilized knee with reconstruction of MCL, proximal lower leg wound repair -Orthopedicly, the patient is stable postoperatively -She has pain that is not controlled at this time, we are increasing the MS Contin to 30 mg twice a day -Follow labs this a.m. -Knee immobilizer on at all times for the next 6 weeks -Out of bed with assistance only -Physical therapy today, weightbearing as tolerated right lower extremity -Eliquis for DVT prophylaxis -Ancef 1 g every 8 hours until patient discharged from hospital, then may remain off antibiotics -Dressing change daily -Hemovac drain removed today by myself -Orthopedic follow-up in [address] Hay -Hyperglycemia improved, appreciate medical and endocrine input -Discharge planning, possibly tomorrow to longterm facility Core Measures/Miscellaneous Venous Thromboembolism VTE Risk Factors: Age > 40, Smoking, Surgery VTE Contraindications: No Contraindications VTE Diagnosis: No VTE Type: NONE VTE Confirmed by (Test): NONE Beta Cody Is Beta Cody a Home Med? No Antibiotics Is Patient on Antibiotics? Yes If Yes: prophylaxis
--- NOTE | 2016-10-08 09:24 | PN- Diabetes ---
Assessment/Plan Assessment: 56-year-old lady with a PMH of HTN, OA, diabetes type 2 compliacted with diabetic neuropathy was admitted and status post right knee surgery. She had to go to OR again after she fell. Now POD #2. She was put on Levemir 16 units twice a day and Novolog coverage before meals and Novolog coverage at bedtime. Her FSGs were 288, 144, 208 and 190. Plan: 1. increase Levemir to 18 units twice a day; 2. continue the current Novolog coverage before meals and Novolog coverage at bedtime. 3. monitor FSGs. will follow. Subjective Subjective: Her glucose levels were not controlled yet. Objective Last 24 Hrs of Vital Signs/I&O Vital Signs Date Time Temp Pulse Resp B/P Pulse O2 O2 Flow FiO2 Ox Delivery Rate 10/08 0655 98.2 96 20 160/76 92 Room Air 10/08 0053 99.4 98 20 120/66 94 Room Air 10/08 0030 99.4 98 20 120/66 10/08 0000 99.4 98 20 120/66 10/07 2215 98.8 98 20 122/60 92 Room Air 10/07 2200 98.8 98 20 120/60 10/07 2008 98.6 98 20 132/60 92 Room Air 10/07 2000 98.6 98 20 132/60 10/07 1809 98.8 103 20 140/60 92 Room Air 10/07 1800 98.8 103 20 140/60 10/07 1611 98.6 101 20 142/76 96 Room Air 10/07 1600 98.6 101 20 142/76 10/07 1400 99.2 99 20 144/80 10/07 1140 101 18 86/58 10/07 1053 Room Air 10/07 1034 98.1 77 20 126/77 Intake & Output 10/08 1600 10/08 0800 10/08 0000 Intake Total 200 700 Output Total 465 600 Balance -265 100 Intake, Oral 200 700 Number 0 Bowel Movements Output, 65 Drainage Output, Urine 400 600 Findings Pertinent Lab/Rich Results: Laboratory Tests 10/08 0610 Chemistry Sodium (137 - 145 mmol/L) 139 Potassium (3.5 - 5.1 mmol/L) 4.2 Chloride (98 - 107 mmol/L) 104 Carbon Dioxide (22 - 30 mmol/L) 30 Anion Gap (5 - 16) 6 BUN (7 - 17 mg/dL) 20 H Creatinine (0.5 - 1.0 mg/dL) 0.5 Estimated GFR (>60 ml/min) > 60 Glucose (65 - 99 mg/dL) 158 H Calcium (8.4 - 10.2 mg/dL) 8.5 Phosphorus (2.5 - 4.5 mg/dL) 3.2 Magnesium (1.6 - 2.3 mg/dL) 1.9 Total Bilirubin (0.2 - 1.3 mg/dL) 0.5 AST (14 - 36 U/L) 22 ALT (9 - 52 U/L) 31 Albumin (3.5 - 5.0 g/dL) 2.8 L Hematology CBC w Diff Pending WBC Pending RBC Pending Hgb Pending Hct Pending MCV Pending MCH Pending RDW Pending Plt Count Pending MPV Pending Gran % Pending Lymphocytes % Pending Monocytes % Pending Eosinophils % Pending Basophils % Pending Absolute Granulocytes Pending Absolute Lymphocytes Pending Absolute Monocytes Pending Absolute Eosinophils Pending Absolute Basophils Pending PUBS MCHC Pending
[2016-10-08 09:38] LABS: PLATELET COUNT 86 /CUMM (130-400)
--- NOTE | 2016-10-08 13:51 | PN- Medicine Consult ---
ASTRID AGARWAL,SHERIF 10/08/16 1255: Assessment/Plan Assessment/Plan Assessment: 56-year-old lady with a PMH of HTN, DJD, OA, diabetes on triple therapy ( glipizide trajenta, pioglitazone), with diabetic neuropathy which is managed with gabapentin and is now status post right total knee replacement. Rapid response called on 10/06/16 after fall, which required revisiting surgical repair just done. Transfered to ICU for closer monitoring. Her pain appears to be an issue, at times well controlled and at times complains of severe pain, which has prompted an increase in MS contin. Blood sugars have been elevated and her levemir dose has been adjusted by endocrinology. Problem list: 1. Right total knee replacement (10/05/2016) 2. Left knee cortisone injection 3. Diabetes with hyperglycemia 4. Hypertension Plan: Recommendations: 1. Right total knee replacement (10/05/2016) * Pain management and recommendations per surgery 2. Left knee cortisone injection * Pain management and recommendations per surgery 3. Diabetes with hyperglycemia * Patient is on triple oral anti-hyperglycemics at home * Accu-Cheks between 190-288 overnight * Levemir dose adjusted this morning, continue novolog * Recommendations provided by commercial green building designer Dr. Jones 4. Hypertension * SBP range 120 to 160 * Elevation likely secondary to pain * Continue losartan 50 mg daily and pain management Problem List: 1. Diabetes 2. HTN (hypertension) 3. Unilateral primary osteoarthritis, right knee 4. Total knee replacement status Subjective Subjective: Feels well, doesnt like the food that is offered. Would like to go home, continues to complain of pain. Review of Systems Constitutional: Reports: see HPI. Objective Last 24 Hrs of Vital Signs/I&O Vital Signs Date Time Temp Pulse Resp B/P Pulse O2 O2 Flow FiO2 Ox Delivery Rate 10/08 1210 Room Air 10/08 1028 90 120/70 10/08 0655 98.2 96 20 160/76 92 Room Air 10/08 0053 99.4 98 20 120/66 94 Room Air 10/08 0030 99.4 98 20 120/66 10/08 0000 99.4 98 20 120/66 10/07 221 98.8 98 20 122/60 92 Room Air 10/07 2199 98.8 98 20 120/60 10/08 2007 98.6 98 20 132/60 92 Room Air 10/07 2000 98.6 98 20 132/60 10/07 1809 98.8 103 20 140/60 92 Room Air 10/07 1800 98.8 103 20 140/60 10/07 1611 98.6 101 20 142/76 96 Room Air 10/07 1600 98.6 101 20 142/76 10/07 1400 99.2 99 20 144/80 Intake & Output 10/08 1600 10/08 0800 10/08 0000 Intake Total 500 200 700 Output Total 150 465 600 Balance 350 -265 100 Intake, Oral 500 200 700 Number 0 Bowel Movements Output, 65 Drainage Output, Urine 150 400 600 Physical Exam General Appearance: alert, awake, obese Head: atraumatic, normal appearance Neck: normal inspection, supple Cardiovascular: regular rate/rhythm, edema Respiratory: normal breath sounds, chest non-tender, lungs clear Peripheral Pulses: 3+ radial (R), 3+ radial (L) Abdomen: normal bowel sounds, soft, non-tender Extremities: no edema Current Medications: Current Medications Sig/Robert Start time Last Medication Dose Route Stop Time Status Admin Acetaminophen 1,000 MG Q6H PRN 10/08 1330 UNVr N/A 1 UNIT IV Acetaminophen 650 MG .STK-MED ONE 10/08 2023 DC PO 10/07 202 Acetaminophen 650 MG Q4P PRN 10/05 1745 AC 10/08 PO 0734 Apixaban 2.5 MG BID 10/07 2200 AC 10/08 PO 1028 Calcium Carbonate 1,000 MG Q8P PRN 10/06 1230 AC PO Cefazolin Sodium 1,000 MG Q8H 10/07 1330 AC 10/08 IV 0534 Diphenhydramine HCl 25 MG Q6-PRN PRN 10/06 2230 AC 10/06 IV 2225 Gabapentin 600 MG TID 10/06 1000 AC 10/08 PO 1029 Guaifenesin 10 ML .STK-MED ONE 10/08 0544 DC PO 10/08 0545 Guaifenesin 10 ML Q4P PRN 10/07 0015 AC 10/08 PO 0547 Hydromorphone HCl 1 MG Q3 PRN 10/08 1330 UNVr 10/08 IV 10/08 2101 1339 Hydromorphone HCl 4 MG ONCE ONE 10/08 0800 DC 10/08 PO 10/08 0801 0813 Hydromorphone HCl 2 MG Q4P PRN 10/08 0015 DC PO Hydromorphone HCl 4 MG Q4P PRN 10/08 0015 DC 10/08 PO 1215 Hydromorphone HCl 50 MG Q24H PRN 10/07 1100 DC 10/07 Sodium Chloride 45 ML IV 1145 Insulin Aspart 0 TIDAC/HS 10/07 1200 AC 10/08 SC 1214 Insulin Detemir 18 UNITS BID 10/08 1000 AC 10/08 SC 1027 Insulin Detemir 16 UNITS BID 10/07 2200 DC 10/07 SC 2242 Ketorolac 30 MG Q6-PRN PRN 10/08 0015 DC 10/08 Tromethamine IV 0702 Ketorolac 15 MG Q8P PRN 10/05 1745 DC 10/07 Tromethamine IV 10/08 1742 2359 Losartan Potassium 50 MG DAILY 10/06 1000 AC 10/08 PO 1028 Methocarbamol 1,000 MG TID PRN 10/08 1330 UNVr PO Morphine Sulfate 30 MG BID 10/08 2200 AC PO Morphine Sulfate 15 MG BID 10/08 0007 DC 10/08 PO 10/08 1100 1029 Morphine Sulfate 2 MG Q2P PRN 10/05 1745 DC 10/07 IV 0710 Nicotine 21 MG 2000 10/07 1999 AC 10/06 TOP 2212 Ondansetron HCl 4 MG Q6P PRN 10/05 1745 AC IV Oxycodone HCl 10 MG Q4P PRN 10/08 1330 AC PO Oxycodone HCl 15 MG Q4P PRN 10/08 1330 AC 10/08 PO 1342 Oxycodone/ 1 TAB Q4P PRN 10/06 1045 DC Acetaminophen PO Pantoprazole Sodium 40 MG DAILY 10/06 1222 AC 10/08 IV 1030 Promethazine HCl 12.5 MG Q6P PRN 10/05 1745 AC IV 10/12 1359 Zolpidem Tartrate 5 MG AT BEDTIME PRN 10/05 2315 AC 10/05 PO 2306 Results Last 24 Hrs Lab/Rich Results: Laboratory Tests 10/08/16 0610: Anion Gap 6, Estimated GFR > 60, Glucose 158 H, Calcium 8.5, Phosphorus 3.2, Magnesium 1.9, Total Bilirubin 0.5, AST 22, ALT 31, Albumin 2.8 L, CBC w Diff NO MAN DIFF REQ, RBC 3.22 L, MCV 93.4, MCH 31.6 H, RDW 13.9, MPV 10.8 H, Gran % 66.8, Lymphocytes % 22.6, Monocytes % 9.0, Eosinophils % 1.3, Basophils % 0.3, Absolute Granulocytes 4.7, Absolute Lymphocytes 1.6, Absolute Monocytes 0.6, Absolute Eosinophils 0.1, Absolute Basophils 0, PUBS MCHC 33.8 MAGDA AGARWAL,[facility] 10/08/16 1438: Attending MD Review Statement Attending Sign Off Attending Cosign Statement: I have: examined this patient, reviewed avalbl EMR data, personally reviewd images, discussd w/resident/PA/STEAM ENGINEER, discussed mgmt plan w/sirisha, discussed mgmt plan w/CM, discussed mgmt plan w/pt, agreed w/resident/PA/STEAM ENGINEER.
[2016-10-08 14:17] VITALS: BP 140/80
[2016-10-08 23:30] VITALS: BP 162/76
[2016-10-09 06:59] VITALS: BP 140/70
--- NOTE | 2016-10-09 09:09 | PN- Orthopedic ---
Subjective Subjective: Reports pain improves with medication. She doesn't like the food and can't wait to leave so she doesn't have to eat it anymore. Out of bed with PT yesterday. No dizziness. No shortness of breath. No chest pains. Voiding well. Last bm on . Eager to go to rehab today. Objective Vital Signs and I&Os Vital Signs Date Time Temp Pulse Resp B/P Pulse O2 O2 Flow FiO2 Ox Delivery Rate 10/09 0659 98.8 90 20 140/70 93 Room Air 10/08 2330 99.7 99 20 162/76 95 Room Air 10/08 1417 98.8 90 20 140/80 98 10/08 1210 Room Air 10/08 1028 90 120/70 Intake & Output 10/09 1600 10/09 0800 10/09 0000 10/08 1600 10/08 0800 10/08 0000 Intake Total 769 564 0844 200 700 Output Total 350 750 300 465 600 Balance -150 -160 960 -265 100 Intake, IV 0 110 Intake, Oral 540 998 9961 200 700 Number 0 0 Bowel Movements Output, 65 Drainage Output, Urine 350 750 300 400 600 Physical Exam: General - alert & oriented x 3. comfortable. no acute distress. Lungs - clear bilaterally. no w/r/r. Cardiac - s1s2. reg. Abdomen - soft. nontender. Extremities - warm bilaterally. right knee dressing changed. incision well approximated with a few small blisters observed at the angle of the incision. no erythema, exudates, or warm. ozzy intact. calves soft and nontender b/l. nvi. leg immobilizer in place. Assessment/Plan Assessment/Plan This 56 year old female with hx htn, dm, neuropathy, is POD#4 s/p R TKR, POD#3 s /p washout, polyethylene spacer revision to a posterior stabilized knee with reconstruction of MCL, proximal lower leg wound repair pain control improved with oxycodone / ms contin / robaxin tolerating diet, but does not like the food dressing changed knee immobilizer at all times for the next 6 weeks ancef until discharged eliquis bid - dvt ppx continue PT, wbat d/c to str today? will d/w Core Measures/Miscellaneous Venous Thromboembolism VTE Risk Factors: Age > 40, Smoking, Surgery VTE Contraindications: No Contraindications VTE Diagnosis: No VTE Type: NONE VTE Confirmed by (Test): NONE Beta Cody Is Beta Cody a Home Med? No Antibiotics Is Patient on Antibiotics? Yes If Yes: prophylaxis
[2016-10-09] MEDS ORDERED: TYLENOL325 M1 PO (09:21)
[2016-10-09] MEDS ORDERED: OXYCODONE HCL5 M1 PO (09:21)
[2016-10-09] MEDS ORDERED: GABAPENTIN300 M2 PO (09:21)
[2016-10-09] MEDS ORDERED: ROBAXIN500 M1 PO (09:21)
[2016-10-09] MEDS ORDERED: OXYCODONE HCL10 M2 PO (09:21)
[2016-10-09] MEDS ORDERED: ZOLPIDEM TARTRAT5 M1 PO (09:21)
[2016-10-09] MEDS ORDERED: MORPHINE SULFAT30 M3 PO (09:21)
[2016-10-09] MEDS ORDERED: NICOTINE PATCH1 EAC3 TOP (09:21)
[2016-10-09] MEDS ORDERED: LEVEMIR100 UNIT/1 SC (09:21)
[2016-10-09] MEDS ORDERED: ELIQUIS2.5 M1 PO (09:21)
[2016-10-09] MEDS ORDERED: GUAIFENESI100 MG/5 M PO (09:21)
[2016-10-09] MEDS ORDERED: CALCIUM CARBON200 MG PO (09:21)
--- NOTE | 2016-10-09 09:37 | PN- Medicine Consult ---
ASTRID AGARWAL,SHERIF 10/09/16 0927: Assessment/Plan Assessment/Plan Assessment: 56-year-old lady with a PMH of HTN, DJD, OA, diabetes on triple therapy ( glipizide trajenta, pioglitazone), with diabetic neuropathy which is managed with gabapentin and is now status post right total knee replacement. Rapid response called on 10/06/16 after fall, which required revisiting surgical repair just done. Transfered to ICU for closer monitoring. Her pain appears to be an issue, at times well controlled and at times complains of severe pain, which has prompted an increase in MS contin. Blood sugars have been elevated and her levemir dose has been adjusted by endocrinology yesterday. Problem list: 1. Right total knee replacement (10/05/2016) 2. Left knee cortisone injection 3. Diabetes with hyperglycemia 4. Hypertension Plan: Recommendations: 1. Right total knee replacement (10/05/2016) * Pain management and recommendations per surgery Working with PT 2. Left knee cortisone injection * Pain management and recommendations per surgery 3. Diabetes with hyperglycemia * Patient is on triple oral anti-hyperglycemics at home * Accu-Cheks BS better controlled, 252, 165, 198, 190, 208 * Levemir dose increased to 18 units BID , continue novolog ss * Recommendations provided by hose tester Dr. Jones 4. Hypertension * SBP range 120 to 160 * Elevation likely secondary to pain * Continue losartan 50 mg daily and pain management 5. Constipation Constipation following diarrheal episode, monitor for BM if doesnt have BM in 24hrs recommend starting bowel regimen as she has been taking large doses of pain medications Problem List: 1. Diabetes 2. HTN (hypertension) 3. Total knee replacement status Subjective Subjective: Feels well, would like to leave to STR today. Pain is slightly better controlled than yesterday. Review of Systems Constitutional: Reports: no symptoms. Objective Last 24 Hrs of Vital Signs/I&O Vital Signs Date Time Temp Pulse Resp B/P Pulse O2 O2 Flow FiO2 Ox Delivery Rate 10/09 0659 98.8 90 20 140/70 93 Room Air 10/08 2330 99.7 99 20 162/76 95 Room Air 10/08 1417 98.8 90 20 140/80 98 10/08 1210 Room Air 10/08 1028 90 120/70 Intake & Output 10/09 1600 10/09 0800 10/09 0000 Intake Total 200 590 Output Total 350 750 Balance -150 -160 Intake, IV 0 110 Intake, Oral 200 480 Number 0 Bowel Movements Output, Urine 350 750 Physical Exam General Appearance: well developed/nourished, no apparent distress, alert, awake Head: atraumatic, normal appearance Neck: normal inspection Cardiovascular: regular rate/rhythm Respiratory: normal breath sounds, no respiratory distress, lungs clear Peripheral Pulses: 3+ radial (R) Abdomen: normal bowel sounds, soft, non-tender Extremities: no edema Current Medications: Current Medications Sig/Robert Start time Last Medication Dose Route Stop Time Status Admin Acetaminophen 1,000 MG Q6P PRN 10/08 1330 AC 10/09 N/A 1 UNIT IV 0749 Acetaminophen 650 MG Q4P PRN 10/05 1745 AC 10/08 PO 0734 Apixaban 2.5 MG BID 10/07 2200 AC 10/08 PO 2202 Calcium Carbonate 1,000 MG Q8P PRN 10/06 1230 AC PO Cefazolin Sodium 1,000 MG Q8H 10/07 1330 AC 10/08 IV 2202 Diphenhydramine HCl 25 MG Q6-PRN PRN 10/06 2230 AC 10/09 IV 0835 Gabapentin 600 MG TID 10/06 1000 AC 10/08 PO 2109 Guaifenesin 10 ML .STK-MED ONE 10/08 2213 DC PO 10/08 2214 Guaifenesin 10 ML .STK-MED ONE 10/08 1529 DC PO 10/08 1530 Guaifenesin 10 ML Q4P PRN 10/07 0015 AC 10/08 PO 2215 Hydromorphone HCl 1 MG Q3 PRN 10/08 1330 DC 10/08 IV 10/08 2101 1754 Hydromorphone HCl 2 MG Q4P PRN 10/08 0015 DC PO Hydromorphone HCl 4 MG Q4P PRN 10/08 0015 DC 10/08 PO 1215 Insulin Aspart 0 TIDAC/HS 10/07 1200 AC 10/09 SC 0746 Insulin Detemir 18 UNITS BID 10/08 1000 AC 10/08 SC 2117 Ketorolac 30 MG Q6-PRN PRN 10/08 0015 DC 10/08 Tromethamine IV 0702 Losartan Potassium 50 MG DAILY 10/06 1000 AC 04/13 PO 1028 Methocarbamol 1,000 MG TID PRN 10/08 1330 AC 10/08 PO 2215 Morphine Sulfate 30 MG BID 10/08 2200 AC 10/08 PO 2117 Morphine Sulfate 15 MG BID 10/08 0007 DC 10/08 PO 10/08 1100 1029 Nicotine 21 MG 2000 10/07 1999 AC 10/08 TOP 2105 Ondansetron HCl 4 MG Q6P PRN 10/05 1745 AC IV Oxycodone HCl 10 MG Q4P PRN 10/08 1330 AC PO Oxycodone HCl 15 MG Q4P PRN 10/08 1330 AC 10/09 PO 0835 Pantoprazole Sodium 40 MG DAILY 10/06 1222 AC 10/08 IV 1030 Promethazine HCl 12.5 MG Q6P PRN 10/05 1745 AC IV 10/12 1359 Zolpidem Tartrate 5 MG AT BEDTIME PRN 10/05 2315 AC 10/09 PO 0008 MAGDA AGARWAL,DYAN 10/09/16 1333: Objective Results Last 24 Hrs Lab/Rich Results: none Attending MD Review Statement Attending Sign Off Attending Cosign Statement: I have: examined this patient, reviewed aval EMR data, personally reviewd images, discussd w/resident/PA/FORM WORKER, discussed mgmt plan w/sirisha, discussed mgmt plan w/CM, discussed mgmt plan w/pt, agreed w/resident/PA/FORM WORKER, amended to note. Other Findings: Please make sure the discharge CMR has the medications as per Dr Jones's recommendations. As currently the discharge CMR does not reflect the changes recommended by Dr Jones.
--- NOTE | 2016-10-09 10:20 | PN- Orthopedic ---
Surgical Brief Attending Note Brief Attending Note: Comfortable s/p RTKA and subsequent revision, POD#3 Wound dry and intact WBAT. Knee immobilizer while ambulating. Does not need it while in bed or while showering.
--- NOTE | 2016-10-09 10:59 | PN- Diabetes ---
Assessment/Plan Assessment: 56-year-old lady with a PMH of HTN, OA, diabetes type 2 compliacted with diabetic neuropathy was admitted and status post right knee surgery. She had to go to OR again after she fell. Now POD #2. Levemir was increased to 18 units twice a day. She is on Novolog coverage before meals and Novolog coverage at bedtime. Her FSGs were 190, 198, 165, 252 and 121. She is going to rehab today. Plan: Discharge plan for DM: 1. Tradjenta 5 mg daily; 2. Actos 45 mg daily; 3. Glipizide 10 mg twice a day right before breakfast and right before dinner; 4. No Levemir; 5 Novolog coverage as back up: before meals x 3 times bedtime FSGs < 200 no coverage no coverage 200-250 4 units 2 units 251-300 6 units 3 units 301-350 8 units 4 units 351-400 10 units 5 units > 400 12 units 6 units 6. monitor FSGs x 4 times a day Subjective Subjective: She is goinng to rehab today Objective Last 24 Hrs of Vital Signs/I&O Vital Signs Date Time Temp Pulse Resp B/P Pulse O2 O2 Flow FiO2 Ox Delivery Rate 10/09 0659 98.8 90 20 140/70 93 Room Air 10/08 2330 99.7 99 20 162/76 95 Room Air 10/08 1417 98.8 90 20 140/80 98 10/08 1210 Room Air Intake & Output 10/09 1600 10/09 0800 10/09 0000 Intake Total 200 590 Output Total 350 750 Balance -150 -160 Intake, IV 0 110 Intake, Oral 200 480 Number 0 Bowel Movements Output, Urine 350 750
[2016-10-09 14:47] VITALS: BP 120/90
[2016-10-09] MEDS ORDERED: COZAAR50 M1 PO (17:05)
[2016-10-09 17:10] VITALS: BP 120/90
[2016-10-09] MEDS ORDERED: NOVOLOG100 UNIT/2 SC (17:12)
[2016-12-04] MEDS ORDERED: NEURONTIN800 M2 PO (13:22)
== END 2016-10-09 17:35 | DRG 467 ==
LOC: ENRESERVDT → CANRESERV → ENRESERVTM → ENPENDDIS 01:09 → SDA 01:09 → 2NA 17:46 → CRI 10-06 12:53 → 2NA 10-07 15:12
PROVIDERS: Nurse Practitioner; Physician Assistant Surgical; Student in an Organized Health Care Education/Training Program; ADMIT Orthopaedic Surgery
PROC: 0SRC0J9 Replacement of Right Knee Joint with Synthetic Substitute, Cemented, Open Approach (ICD-10-PCS; principal; 2016-10-05)
PROC: 3E0U3BZ Introduction of Anesthetic Agent into Joints, Percutaneous Approach (ICD-10-PCS; 2016-10-06)
PROC: 3E0U33Z Introduction of Anti-inflammatory into Joints, Percutaneous Approach (ICD-10-PCS; 2016-10-06)
PROC: 0SQC0ZZ Repair Right Knee Joint, Open Approach (ICD-10-PCS; 2016-10-06)
PROC: 0SPV0JZ Removal of Synthetic Substitute from Right Knee Joint, Tibial Surface, Open Approach (ICD-10-PCS; 2016-10-06)
PROC: 0SRV0JZ Replacement of Right Knee Joint, Tibial Surface with Synthetic Substitute, Open Approach (ICD-10-PCS; 2016-10-06)
DX: M17.0 Bilateral primary osteoarthritis of knee (principal); T84.022A Instability of internal right knee prosthesis, initial encounter; T81.31XA Disruption of external operation (surgical) wound, not elsewhere classified, initial encounter; E11.40 Type 2 diabetes mellitus with diabetic neuropathy, unspecified; E11.65 Type 2 diabetes mellitus with hyperglycemia; I10 Essential (primary) hypertension; Z79.84 Long term (current) use of oral hypoglycemic drugs; F17.200 Nicotine dependence, unspecified, uncomplicated; W18.30XA Fall on same level, unspecified, initial encounter; Y92.239 Unspecified place in hospital as the place of occurrence of the external cause
CPT/HCPCS: 2NAP; 2NASP; CCU; 36415; 73502-RT; 73560-RT; 82436; 88305; 93005; 93010; 97110-GO; 97112-GO; 97116-GO; 97161-GP; 97164-GP; 97530-GO; C1713; J0131; J0690; J1030; J1170; J1200; J1815; J1885; J2405; J2550; J2795; J7040; J7042

== ENCOUNTER → 2016-12-09 | Day surgery (SDC) | payer OTHER ==
[~2016-12-09] VITALS: Ht 165.1 cm; Wt 113.4 kg
[~2016-12-09] MED LIST changes: +CALCIUM CARBON200 MG PO; +COLACE100 M1 PO; +COZAAR50 M1 PO; +ELIQUIS2.5 M1 PO; +GUAIFENESI100 MG/5 M PO; +LEVEMIR100 UNIT/1 SC; +MIRALAX17 G1 PO; +MORPHINE SULFAT30 M3 PO; +NEURONTIN800 M2 PO; +NICOTINE PATCH1 EAC3 TOP; +NOVOLOG100 UNIT/2 SC; +OXYCODONE HCL10 M2 PO; +OXYCODONE HCL5 M1 PO; +PRILOSEC OTC20 M1 PO; +ROBAXIN500 M1 PO; +TYLENOL325 M1 PO; +ZOLPIDEM TARTRAT5 M1 PO
--- NOTE | 2016-12-09 19:07 | Operative Report ---
Operative/Inv Procedure Report Surgery Date: 12/09/16 Name of Procedure: 1. Right knee manipulation under anesthesia 2. Left knee cortisone injection Pre-Operative Diagnosis: 1. Right knee periprosthetic stiffness 2. Left knee primary DJD Post-Operative Diagnosis: Same Estimated Blood Loss: n/a Surgeon/Rehabilitation Tech: MARCY SALINAS MD Anesthesia: laryngeal mask airway Operative/Procedure Note Note: The patient was taken to the operating room and positively identified. After induction of sedation the patient was placed supine on the operating room table and all bony problems as well padded. Her to manipulation the patient had full extension of the right knee and flexion to about 85. Lysing gentle but firm pressure over the tibial tubercle audible release of scar tissue was noted. The knee could be flexed to about 110 following manipulation. The right knee was prepped sterilely and injected with 30 mL of half percent Marcaine. The left knee was also prepped sterilely and injected with a mixture of 2 mL of Depo-Medrol and 8 mL of half percent Marcaine. Band-Aids were placed over the injection sites. The patient was awakened and taken to the recovery room in satisfactory condition.
== END ==
LOC: STS 05:09 → EDSTATUS 07:00
DX: M25.661 Stiffness of right knee, not elsewhere classified (principal); M17.12 Unilateral primary osteoarthritis, left knee; I10 Essential (primary) hypertension; E11.8 Type 2 diabetes mellitus with unspecified complications; Z79.84 Long term (current) use of oral hypoglycemic drugs; Z98.890 Other specified postprocedural states
CPT/HCPCS: J1030